=== PATIENT | female | born 1940 | race Hispanic/Latino ===

== ENCOUNTER 2016-06-23 23:00 | Inpatient (IN) | payer MEDICARE, OTHER ==
[2016-06-23 23:00] VITALS: BMI 20.9
[2016-06-23 23:50] LABS: BASO # 0.1 K/uL (0.0-0.2); EOS # 0.2 K/uL (0.0-0.7); EOS % 2.6 % (0.0-4.0); HEMATOCRIT 36.1 % (34.0-47.0); LYMPH # 1.2 K/uL (1.0-4.3); LYMPH % 13.6 % (20.0-40.0); MEAN CELL VOLUME 86.5 fl (81.0-99.0); MEAN CORPUSCULAR HGB CONC 34.7 g/dL (33.0-37.0); MEAN PLATELET VOLUME 6.9 fl (7.2-11.7); MONO # 0.6 K/uL (0.0-0.8); MONO % 6.4 % (0.0-10.0); NEUT % 76.4 % (50.0-75.0); RED CELL DISTRIBUTION WIDTH 13.3 % (11.5-14.5); WHITE BLOOD COUNT 9.2 K/uL (4.8-10.8)
[2016-06-23 23:56] LABS: ALB/GLOB RATIO 1.4 (1.0-2.1); ALKALINE PHOSPHATASE 71 U/L (38-126); ALT/SGPT 39 U/L (9-52); AST/SGOT 36 U/L (14-36); BILIRUBIN,TOTAL 0.4 mg/dl (0.2-1.3); BLOOD UREA NITROGEN 22 mg/dl (7-17); CALCIUM 9.9 mg/dL (8.4-10.2); CARBON DIOXIDE 25 mmol/L (22-30); CHLORIDE 94 mmol/L (98-107); GFR AFRICAN-AMERICAN 59; GLUCOSE,RANDOM 127 mg/dL (65-105); LIPASE 94 U/L (23-300); PHOSPHOROUS 3.1 mg/dl (2.5-4.5); POTASSIUM 3.4 MMOL/L (3.6-5.0); SODIUM 132 mmol/l (132-148); TOTAL PROTEIN 7.3 G/DL (6.3-8.2)
[2016-06-24] MEDS ORDERED: Albuterol-Ipratrop 3 mg / 0.5 (3 ml) UD INH STA (00:04)
[2016-06-24 00:06] LABS: PARTIAL THROMBOPLASTIN TIME 24.3 SECONDS (23.3-32.5)
--- NOTE | 2016-06-24 00:21 | ED PDOC ---
HPI:Nausea, Vomiting, Diarrhea Time Seen by Provider: 06/23/16 23:11 Chief Complaint (Nursing): Dizziness/Lightheaded Chief Complaint (Provider): vomiting, diarrhea History/Exam Limitations: no limitations Onset/Duration Of Symptoms: Days (7x) Current Symptoms Are (Timing): Still Present Severity: Moderate Associated Symptoms: Chills, Nausea, Vomiting, Diarrhea, Loss Of Appetite. denies: Fever, Urinary Symptoms Additional Complaint(s): 75 year old female presents to the ED with complaints of vomiting and diarrhea that started 7x days ago. She reports that the vomiting started 7x days ago, 4- 5x episodes per day and she unable to tolerate food or fluids. She reports that the diarrhea started 7x days ago, lasted for 3x days, and it was watery (non bloody). She hasn't had any bowel movements since ten. She reports having associated symptoms of chills, weakness (she almost couldn't walk today), dizziness, lightheadedness, and a headache. She denies having a fever, abdominal pain, and passing out. She reports having a similar episode to this 1x year ago. PMD: patient does not recall. 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 - Family History Family History: States: No Known Family Hx - Social History Current smoker - smoking cessation education provided: No Ex-Smoker (has not smoked in the last 12 months): Yes Alcohol: None Drugs: Denies - Immunization History Hx Tetanus Toxoid Vaccination: No Hx Influenza Vaccination: No Hx Pneumococcal Vaccination: No - Home Medications Home Medications: Ambulatory Orders Medication Instructions Recorded Alprazolam [Xanax] 0.5 mg PO DAILY 06/24/16 Calcium Carbonate [Calcium] 1,200 mg PO DAILY 06/24/16 Cholecalciferol [Vitamin D 1000 IU] 2,000 iu PO DAILY 06/24/16 Fluticasone/Salmeterol 250/50 2 puff INH PRN PRN 06/24/16 [Advair Diskus 250/50] Ipratropium [Atrovent HFA] 2 puff INH QID 06/24/16 Lisinopril/Hydrochlorothiazide 1 tab PO DAILY 06/24/16 [Lisinopril-Hctz 20-25 mg Tab] Mometasone Furoate [Nasonex] 1 spray CHAY PRN PRN 06/24/16 - Allergies Allergies/Adverse Reactions: Allergies Allergy/AdvReac Type Severity Reaction Status Date / Time No Known Allergies Allergy Verified 06/24/16 00:59 Review of Systems ROS Statement: Except As Marked, All Systems Reviewed And Found Negative Constitutional: Positive for: Chills, Weakness. Negative for: Fever Cardiovascular: Positive for: Light Headedness Respiratory: Positive for: Other (chest tightness, similar to q) Gastrointestinal: Positive for: Nausea, Vomiting, Diarrhea. Negative for: Abdominal Pain Neurological: Positive for: Headache, Dizziness Physical Exam - Reviewed Nursing Documentation Reviewed: Yes Vital Signs Reviewed: Yes - Physical Exam Appears: Positive for: Non-toxic, In Acute Distress. Negative for: Well (tired appearing) Head Exam: Positive for: ATRAUMATIC, NORMOCEPHALIC Skin: Positive for: Warm, Dry, Pallor ENT: Positive for: Pharynx Is (clear), Other (tacky mucous membranes) Neck: Positive for: Normal, Painless ROM, Trachea Midline Cardiovascular/Chest: Positive for: Regular Rate, Rhythm. Negative for: Murmur Respiratory: Positive for: Wheezing (diffuse expiratory wheeze). Negative for: Accessory Muscle Use, Respiratory Distress Gastrointestinal/Abdominal: Positive for: Normal Exam, Soft. Negative for: Tenderness, Mass, Distended, Guarding, Rebound Back: Positive for: Normal Inspection. Negative for: Decreased ROM Extremity: Positive for: Normal ROM. Negative for: Pedal Edema Lymphatic: Negative for: Adenopathy Neurologic/Psych: Positive for: Alert, Oriented (3x) - Laboratory Results Result Diagrams: 06/24/16 06:30 06/24/16 06:00 - ECG O2 Sat by Pulse Oximetry: 100 (RA) Pulse Ox Interpretation: Normal Medical Decision Making Medical Decision Makin:11 Initial impression: 75 year old female with vomiting, dirrhea, and general body weakness. Initial plan: * type and screen * head ct w/o contrast * EKG * udip * CMP * lactic acid, plasma * lipase * magnesium * phosphorous * troponin I * CBC * PTT * prothrombin time * XRay chest portable * duoneb 3mlx3 doses: 9ml INH * zofran ink 4mg IVP * blood culture * peak flow pre/post treatment * reevaluation DOMINGA Begum for hospitalization Scribe Attestation: Documented by Preethi Macias, acting as a scribe for Monalisa Velasquez MD. Provider Scribe Attestation: All medical record entries made by the Scribe were at my direction and personally dictated by me. I have reviewed the chart and agree that the record accurately reflects my personal performance of the history, physical exam, medical decision making, and the department course for this patient. I have also personally directed, reviewed, and agree with the discharge instructions and disposition. Disposition - Clinical Impression Clinical Impression: Dizziness, Gastroenteritis Counseled Patient/Family Regarding: Studies Performed, Diagnosis - Disposition Disposition Time: 00:00 Condition: GUARDED - Pt Status Changed To: Hospital Disposition Of: Observation - POA Present On Arrival: None
[2016-06-24] MEDS ORDERED: Albuterol-Ipratrop 3 mg / 0.5 (3 ml) UD ONE (00:36)
--- NOTE | 2016-06-24 00:37 | CT ---
EXAM: CT Head Without Intravenous Contrast CLINICAL HISTORY: 75 years old, female; Pain and signs and symptoms; Other: Pate's dizzyness loss of appetite HTN depression; Headache; Prior surgery; Surgery date: 6+ months; Surgery type: Shunt 2014; Additional info: Dizziness headache TECHNIQUE: Axial computed tomography images of the head/brain without intravenous contrast. This CT exam was performed using one or more of the following dose reduction techniques: automated exposure control, adjustment of the mA and/or kV according to patient size, and/or use of iterative reconstruction technique. Coronal and sagittal reformatted images were created and reviewed. COMPARISON: CT - HEAD W/O CONTRAST 01/28/2014 3:00:04 PM FINDINGS: Brain: Moderate atrophy. No intracranial hemorrhage. No mass. Few scattered foci of decreased attenuation within periventricular/subcortical white matter. No definite edema. Ventricles: Ventricular shunt via RIGHT frontal approach, tip within body of LEFT ventricle. No hydrocephalus. Bones/joints: No acute fracture. Soft tissues: Unremarkable. Vasculature: Atherosclerotic disease of intracranial arteries. Sinuses: No acute sinusitis. Mastoid air cells: No mastoid effusion. Orbits: Unremarkable as visualized. IMPRESSION: 1. Nonspecific white matter changes. Acute infarction may be CT occult within first 24 hours. If a focal deficit persists, consider followup CT or MRI for further evaluation. 2. Incidental/non-acute findings are described above.
[2016-06-24] MEDS ORDERED: Fluticasone-Salmeterol 250-50mcg Diskus INH PRN (01:45)
--- NOTE | 2016-06-24 02:22 | CP.PCM.HP ---
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 She reports that the vomiting is non-bloody/non-bilous, 4-5x episodes per day and she unable to tolerate food or fluids. She reports that the diarrhea started approx the same time and it was watery (non bloody). She reports having associated symptoms of chills, weakness, dizziness, lightheadedness, and a headache. Patient states dizziness is that she feels off-balanced. She denies having a fever, abdominal pain, and passing out. No chest pain, palpitations, recent illness, sick contacts. 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 Labs: Remarkable for elevated BUN and low Cl/K. Blood cx obtained. Imaging: CT Head w/o contrast, non-specific white matter changes. CXR NAD Meds: Zofran 4mg x1, Duoneb x 3, Present on Admission - Present on Admission Any Indicators Present on Admission: No Review of Systems - Review of Systems All systems: reviewed and no additional remarkable complaints except (mentioned in HPI) Past Patient History - Past Medical History & Family History Past Medical History?: Yes - Past Social History Alcohol: None Drugs: Denies - CARDIAC Hx Hypertension: Yes - PULMONARY Hx Asthma: Yes Hx Chronic Obstructive Pulmonary Disease (COPD): Yes - NEUROLOGICAL Hx Neurological Disorder: No - HEENT Hx HEENT Problems: Yes - RENAL Hx Chronic Kidney Disease: No - ENDOCRINE/METABOLIC Hx Endocrine Disorders: No - HEMATOLOGICAL/ONCOLOGICAL Hx Blood Disorders: No - INTEGUMENTARY Hx Dermatological Problems: No - MUSCULOSKELETAL/RHEUMATOLOGICAL Hx Arthritis: Yes Hx Osteoporosis: Yes - GASTROINTESTINAL Hx Gastrointestinal Disorders: No - GENITOURINARY/GYNECOLOGICAL Hx Genitourinary Disorders: No - PSYCHIATRIC Hx Anxiety: Yes Hx Depression: Yes - SURGICAL HISTORY Hx Surgeries: No Other/Comment: R shunt Sx for Hydrocephalus @ [facility] in June 2014 - ANESTHESIA Hx Anesthesia: Yes Hx Anesthesia Reactions: No Meds Allergies/Adverse Reactions: Allergies Allergy/AdvReac Type Severity Reaction Status Date / Time No Known Allergies Allergy Verified 06/24/16 00:59 Physical Exam - Constitutional Appears: Non-toxic, No Acute Distress - Head Exam Head Exam: ATRAUMATIC, NORMAL INSPECTION, NORMOCEPHALIC - Eye Exam Eye Exam: EOMI, Normal appearance - ENT Exam ENT Exam: Mucous Membranes Dry - Neck Exam Neck exam: Positive for: Normal Inspection - Respiratory Exam Respiratory Exam: Wheezes (mild bilateral expiratory in bases), NORMAL BREATHING PATTERN. absent: Rales, Rhonchi - Cardiovascular Exam Cardiovascular Exam: RRR, +S1, +S2 - GI/Abdominal Exam GI & Abdominal Exam: Normal Bowel Sounds, Soft. absent: Tenderness - Extremities Exam Extremities exam: Positive for: normal inspection. 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 Plan: 1) Gastroenteritis with dehydration/dizziness -Likely viral -admit to med/surg -VS qshift -patient is hemodynamically stable, vitals reviewed and stable -CT Head: no acute finding, non specific white matter changes -IVF NS @ 125ml/hr -Zofran prn n/v -f/u blood cx, labs in am, monitor vitals -Fall precautions 2)COPD -c/w home meds advair, atrovent, albuterol 3)HTN, controlled -lisinopril/HCTZ -monitor vitals 4)PPx -DVT: lovenox 40mg sc daily
[2016-06-24] MEDS: Sodium Chloride 0.9% 1,000 ML IV SCH ×2 (02:48→09:51)
[2016-06-24] MEDS ORDERED: Potassium Chloride 20 mEq ER Tab PO ONE (07:56)
[2016-06-24 08:20] LABS: HEMATOCRIT 32.7 % (34.0-47.0); MEAN CELL VOLUME 86.5 fl (81.0-99.0); MEAN CORPUSCULAR HEMOGLOBIN 30.4 pg (27.0-31.0); MEAN CORPUSCULAR HGB CONC 35.2 g/dL (33.0-37.0); RED CELL DISTRIBUTION WIDTH 13.6 % (11.5-14.5); WHITE BLOOD COUNT 7.9 K/uL (4.8-10.8)
[2016-06-24] MEDS ORDERED: Docusate-Senna 50 mg-8.6 mg Tab PO PRN (08:28)
[2016-06-24] MEDS: Fluticasone-Salmeterol 250-50mcg Diskus IH SCH ×2 (08:34→21:41)
[2016-06-24] MEDS: Enoxaparin 40 mg Syringe SC SCH (08:35)
[2016-06-24 08:46] LABS: ALB/GLOB RATIO 1.4 (1.0-2.1); BILIRUBIN,TOTAL 0.2 mg/dl (0.2-1.3); CALCIUM 9.2 mg/dL (8.4-10.2); POTASSIUM 3.2 MMOL/L (3.6-5.0); TOTAL PROTEIN 6.3 G/DL (6.3-8.2)
[2016-06-24] MEDS ORDERED: Patient's Own Med (Lisinopril/Hydrochlorothiazide [Lisinopril-Hctz 20-25 Mg Tab] 1 TAB) PO SCH (09:00)
--- NOTE | 2016-06-24 10:04 | RAD ---
HISTORY: vomiting COMPARISON: No prior. FINDINGS: LUNGS: No active pulmonary disease. PLEURA: No significant pleural effusion identified, no pneumothorax apparent. CARDIOVASCULAR: Normal. OSSEOUS STRUCTURES: No significant abnormalities. VISUALIZED UPPER ABDOMEN: Normal. OTHER FINDINGS: None. IMPRESSION: No active disease.
[2016-06-24] MEDS: IPRATROPIUM INH SCH ×4 (11:28→21:41)
--- NOTE | 2016-06-24 12:21 | CP.PCM.PN ---
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 The patient was seen this morning. There are no acute events overnight. The patient is not in acute distress. The patient denies nausea, vomiting, and diarrhea since admission; however, patient has not eaten or drank. The patient reports that she has been able to keep down water, juice, and chicken broth this morning. The patient also reports slight tension headaches on the right side whee her EDUCATION INTERN shunt is located. The patient denies chest pain, dyspnea, abdominal pain, dysuria, and fever. Objective - Vital Signs/Intake and Output Vital Signs (last 24 hours): Temp Pulse Resp BP Pulse Ox 97.7 F 72 20 122/71 97 06/24/16 07:34 06/24/16 08:36 06/24/16 07:34 06/24/16 08:36 06/24/16 07:34 - Medications Medications: Current Medications Acetaminophen (Tylenol 325mg Tab) 650 mg PO Q6 PRN PRN Reason: Headache Last Admin: 06/24/16 08:33 Dose: 650 mg Calcium Carbonate (Oscal) 1,000 mg PO DAILY [facility] Last Admin: 06/24/16 08:35 Dose: 1,000 mg Cholecalciferol (Vitamin D) 2,000 iu PO DAILY [facility] Last Admin: 06/24/16 09:51 Dose: 2,000 iu Enoxaparin Sodium (Lovenox) 40 mg SC DAILY [facility] PRN Reason: Protocol Last Admin: 06/24/16 08:35 Dose: 40 mg Home Med (Ipratropium [Atrovent Hfa]) 2 puff INH QID [facility] Last Admin: 06/24/16 11:28 Dose: Not Given Hydrochlorothiazide (Hydrodiuril) 25 mg PO DAILY [facility] Last Admin: 06/24/16 08:35 Dose: 25 mg Sodium Chloride (Sodium Chloride 0.9%) 1,000 mls @ 125 mls/hr IV .Q8H [facility] Last Admin: 06/24/16 09:51 Dose: 125 mls/hr Lisinopril (Zestril) 20 mg PO DAILY [facility] Last Admin: 06/24/16 08:36 Dose: 20 mg Ondansetron HCl (Zofran Inj) 4 mg IVP Q6 PRN PRN Reason: Nausea/Vomiting Fluticasone/Salmeterol (Advair Diskus 250/50) 1 puff IH Q12 [facility] Last Admin: 06/24/16 08:34 Dose: 1 puff Senna/Docusate Sodium (Senokot S 50 Mg-8.6 Mg) 2 tab PO HS PRN PRN Reason: Constipation - Labs Labs: PT 10.6 SECONDS (9.6-11.2) 06/23/16 23:46 INR 1.02 (0.92-1.08) 06/23/16 23:46 APTT 24.3 SECONDS (23.3-32.5) 06/23/16 23:46 - Constitutional Appears: No Acute Distress - Head Exam Head Exam: ATRAUMATIC, NORMOCEPHALIC - ENT Exam ENT Exam: Mucous Membranes Dry - Respiratory Exam Respiratory Exam: Wheezes. absent: Accessory Muscle Use, Chest Wall Tenderness , Decreased Breath Sounds, Prolonged Expiratory Phase, Rales, Rhonchi, Respiratory Distress, Stridor Additional comments: mild bilaterally expiratory wheeze at the bases - Cardiovascular Exam Cardiovascular Exam: REGULAR RHYTHM. absent: Tachycardia - GI/Abdominal Exam GI & Abdominal Exam: Soft, Normal Bowel Sounds. absent: Distended, Tenderness - Extremities Exam Extremities Exam: absent: Calf Tenderness, Pedal Edema, Tenderness - Neurological Exam Neurological Exam: Alert, Awake - Skin Skin Exam: Dry, Intact, Normal Color, Warm Assessment and Plan - Assessment and Plan (Free Text) Assessment: The patient is a 75 y/o woman w/ PMHx of COPD, HTN, EDUCATION INTERN shunt secondary to hydrocephalus presented to the ED with complaints of vomiting and diarrhea that started 1 week ago prior to admission. Plan: 1) Gastroenteritis - dehydration/dizziness - most likely viral - CBC: 7.9>11.5/32.7<255 - CMP: 135/3.2, 96/27, 22/1.2, glucose 83, Ca2+ 9.2, AST 30, ALT 35 - lactic acid 1.2 - lipase 94 - coags: PT 10.6, INR 1.02, aPTT 24.3 - CT Head: no acute finding, non specific white matter changes - given K-dur 40 meq PO once to replete K+ - IVF NS @ 125ml/hr - Zofran 4 mg IV prn for nausea - follow up blood culture 2)COPD - continue with home meds: advair, atrovent, albuterol 3)HTN - controlled - lisinopril 20 mg PO daily - HCTZ 25 mg PO daily 4)PPx - DVT: lovenox 40mg sc daily - fall precautions - PT evaluation and treatment ordered
[2016-06-25] MEDS ORDERED: Albuterol-Ipratrop 3 mg / 0.5 (3 ml) UD INH STA (07:17)
[2016-06-25 08:07] LABS: BLOOD UREA NITROGEN 13 mg/dl (7-17); CALCIUM 8.1 mg/dL (8.4-10.2); CARBON DIOXIDE 24 mmol/L (22-30); CHLORIDE 105 mmol/L (98-107); GFR AFRICAN-AMERICAN > 60; GLUCOSE,RANDOM 85 mg/dL (65-105); MAGNESIUM 1.7 MG/DL (1.6-2.3); PHOSPHOROUS 2.3 mg/dl (2.5-4.5); POTASSIUM 3.2 MMOL/L (3.6-5.0); SODIUM 135 mmol/l (132-148)
[2016-06-25] MEDS: Fluticasone-Salmeterol 250-50mcg Diskus IH SCH ×2 (08:54→20:14)
[2016-06-25] MEDS: IPRATROPIUM INH SCH ×4 (08:55→21:06)
[2016-06-25] MEDS: Enoxaparin 40 mg Syringe SC SCH (08:56)
--- NOTE | 2016-06-25 09:10 | CP.PCM.PN ---
Subjective - Date & Time of Evaluation Date of Evaluation: 06/25/16 Time of Evaluation: 07:25 - Subjective Subjective: Patient was seen and examined at bedside this morning. Patient was complaining of SOB, and chest tightness. Reports last vomit was yesterday after she ate her lunch. States that after she had her lunch she started feeling dizzy and with nausea until she throw up the whole lunch. Reports one diarrhea this morning, but can not tell if was blood in it because she did not look at the stools. Reports right sided headache, 05/04. This headaches has been intermittent for one week now. Objective - Vital Signs/Intake and Output Vital Signs (last 24 hours): Temp Pulse Resp BP Pulse Ox 97.6 F 73 18 132/65 95 06/25/16 07:41 06/25/16 08:55 06/25/16 07:41 06/25/16 08:55 06/25/16 07:41 - Medications Medications: Current Medications Acetaminophen (Tylenol 325mg Tab) 650 mg PO Q6 PRN PRN Reason: Headache Last Admin: 06/25/16 08:53 Dose: 650 mg Calcium Carbonate (Oscal) 1,000 mg PO DAILY [facility] Last Admin: 06/25/16 08:54 Dose: 1,000 mg Cholecalciferol (Vitamin D) 2,000 iu PO DAILY [facility] Last Admin: 06/24/16 09:51 Dose: 2,000 iu Enoxaparin Sodium (Lovenox) 40 mg SC DAILY [facility] PRN Reason: Protocol Last Admin: 06/25/16 08:56 Dose: 40 mg Home Med (Ipratropium [Atrovent Hfa]) 2 puff INH QID [facility] Last Admin: 06/25/16 08:55 Dose: 2 puff Hydrochlorothiazide (Hydrodiuril) 25 mg PO DAILY [facility] Last Admin: 06/25/16 08:54 Dose: 25 mg Potassium Chloride (Potassium Chloride 10 Meq/100 Ml) 100 mls @ 100 mls/hr IVPB Q1 [facility] Stop: 06/25/16 12:59 Lisinopril (Zestril) 20 mg PO DAILY [facility] Last Admin: 06/25/16 08:55 Dose: 20 mg Ondansetron HCl (Zofran Inj) 4 mg IVP Q6 PRN PRN Reason: Nausea/Vomiting Last Admin: 06/24/16 14:26 Dose: 4 mg Fluticasone/Salmeterol (Advair Diskus 250/50) 1 puff IH Q12 [facility] Last Admin: 06/25/16 08:54 Dose: 1 puff Senna/Docusate Sodium (Senokot S 50 Mg-8.6 Mg) 2 tab PO HS PRN PRN Reason: Constipation - Labs Labs: 06/25/16 06:10 PT 10.6 SECONDS (9.6-11.2) 06/23/16 23:46 INR 1.02 (0.92-1.08) 06/23/16 23:46 APTT 24.3 SECONDS (23.3-32.5) 06/23/16 23:46 - Head Exam Head Exam: ATRAUMATIC - ENT Exam ENT Exam: Mucous Membranes Moist - Neck Exam Neck Exam: Full ROM, Normal Inspection - Respiratory Exam Respiratory Exam: Decreased Breath Sounds, Wheezes (Bilateral). absent: Rales - Cardiovascular Exam Cardiovascular Exam: REGULAR RHYTHM, +S1, +S2. absent: Murmur - GI/Abdominal Exam GI & Abdominal Exam: Soft, Normal Bowel Sounds. absent: Distended, Tenderness - Extremities Exam Extremities Exam: Normal Inspection. 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 Plan: 1) Gastroenteritis - most likely viral - CBC: 7.9>11.5/32.7<255 - CMP on 06/25/16: low potassium/3.2, BUN/Cr: WNL, mild decreased Ca/Phosphorus: 8.1/2.3 - CT Head: no acute finding, non specific white matter changes - given K-dur 40 meq PO once to replete K+ -Clear liquid diet. Assess tolerance, then advance - IVF NS @ 75 ml/hr - Zofran 4 mg IV prn for nausea 2)Bacteremia, blood culture positive for Staph aureus & coagulase neg -Afebrile -F/U blood culture X 2 ordered today before Vanco -Start Vancomycin 1 GM daily IV for prophylaxis. H/o Hydrocephalus s/p SOIL SCIENCE TECHNICAL OFFICER shunt -Consider ID consult if patient spikes -Consider vanco trough 30 minutes before 4 dose 3)COPD -Patient symptomatic, with expiratory wheezing bilateral -Duoneb dose stat, re-assess -Start Duoneb [id number] -Continue with home meds: advair, atrovent, albuterol -Start prednisone 40 mg daily x 5 days -Start Protonix 20 mg IV daily for prophylaxis -CXR on 06/24/16 showed no active disease 4)Hypokalemia most likely secondary to possible gastroenteritis -K replacement 40 MEQ IV X 4 bags -F/U BMP on 06/26/16 -F/U magnesium 5)HTN - controlled - lisinopril 20 mg PO daily - HCTZ 25 mg PO daily 6)PPx - DVT: lovenox 40mg sc daily - fall precautions - PT evaluation and treatment ordered
[2016-06-25] MEDS ORDERED: Albuterol-Ipratrop 3 mg / 0.5 (3 ml) UD INH PRN (10:55)
[2016-06-25 11:22] LABS: RBC URINE 3 /hpf (0-3); URINE BACTERIA RARE (<OCC); URINE BILIRUBIN NEGATIVE (NEGATIVE); URINE BLOOD SMALL (NEGATIVE); URINE COLOR STRAW (YELLOW); URINE GLUCOSE (UA) NEG (Normal); URINE KETONE NEGATIVE (NEGATIVE); URINE LEUKOCYTE ESTERASE NEG Leu/uL (Negative); URINE PROTEIN NEGATIVE (NEGATIVE); URINE UROBILINOGEN 0.2-1.0 mg/dL (0.2-1.0); WBC URINE 1 /hpf (0-5)
[2016-06-25] MEDS: Potassium CL 10mEq/100ml 100 ML IVPB SCH ×4 (11:40→20:15)
[2016-06-25] MEDS: Albuterol-Ipratrop 3 mg / 0.5 (3 ml) UD INH SCH ×3 (11:51→19:21)
[2016-06-25] MEDS: Sodium Chloride 0.9% 1,000 ML IV SCH (13:27)
[2016-06-26] MEDS: Albuterol-Ipratrop 3 mg / 0.5 (3 ml) UD INH SCH ×7 (00:07→23:17)
[2016-06-26] MEDS: Sodium Chloride 0.9% 1,000 ML IV SCH (02:51)
--- NOTE | 2016-06-26 07:37 | CARD ---
APPROVED REPORT EKG Measurement Heart [id number] <Conclusion> Normal sinus rhythm Left bundle branch block Abnormal ECG
[2016-06-26 07:42] LABS: BLOOD UREA NITROGEN 10 mg/dl (7-17); CALCIUM 8.4 mg/dL (8.4-10.2); CARBON DIOXIDE 21 mmol/L (22-30); CHLORIDE 104 mmol/L (98-107); GFR AFRICAN-AMERICAN > 60; GLUCOSE,RANDOM 112 mg/dL (65-105); MAGNESIUM 1.6 MG/DL (1.6-2.3); POTASSIUM 3.5 MMOL/L (3.6-5.0); SODIUM 133 mmol/l (132-148)
[2016-06-26 08:23] VITALS: RESP 20
--- NOTE | 2016-06-26 08:31 | CP.PCM.PN ---
Subjective - Date & Time of Evaluation Date of Evaluation: 06/26/16 Time of Evaluation: 07:10 - Subjective Subjective: Patient was seen and examined at bedside this morning. Reports that she was feeling anxious yesterday night. Anxiety improved after she took Xanax, that she states she used to take at home three times day. Also she reports she had headache early this morning that was alleviated with oral Tylenol. Denies nausea , vomiting and/or diarrheas, she is tolerating liquid diet well, but is "afraid to eat solid food", because every time she eats solid food she gets dizzy and nauseated. She feels better than yesterday regarding the SOB and wheezing. Objective - Vital Signs/Intake and Output Vital Signs (last 24 hours): Temp Pulse Resp BP Pulse Ox 98.1 F 76 20 145/67 96 06/26/16 08:22 06/26/16 08:22 06/26/16 08:22 06/26/16 08:22 06/26/16 08:22 - Medications Medications: Current Medications Acetaminophen (Tylenol 325mg Tab) 650 mg PO Q6 PRN PRN Reason: Headache Last Admin: 06/26/16 02:50 Dose: 650 mg Albuterol/Ipratropium (Duoneb 3 Mg/0.5 Mg (3 Ml) Ud) 3 ml INH RQ4 [facility] Last Admin: 06/26/16 07:37 Dose: 3 ml Alprazolam (Xanax) 0.25 mg PO Q8 PRN PRN Reason: Anxiety Stop: 07/02/16 19:54 Last Admin: 06/25/16 20:14 Dose: 0.25 mg Calcium Carbonate (Oscal) 1,000 mg PO DAILY [facility] Last Admin: 06/25/16 08:54 Dose: 1,000 mg Cholecalciferol (Vitamin D) 2,000 iu PO DAILY [facility] Last Admin: 06/25/16 10:08 Dose: 2,000 iu Enoxaparin Sodium (Lovenox) 40 mg SC DAILY [facility] PRN Reason: Protocol Last Admin: 06/25/16 08:56 Dose: 40 mg Home Med (Ipratropium [Atrovent Hfa]) 2 puff INH QID [facility] Last Admin: 06/25/16 21:06 Dose: 2 puff Hydrochlorothiazide (Hydrodiuril) 25 mg PO DAILY [facility] Last Admin: 06/25/16 08:54 Dose: 25 mg Sodium Chloride (Sodium Chloride 0.9%) 1,000 mls @ 75 mls/hr IV .[id number] [facility] Stop: 06/26/16 12:11 Last Admin: 06/26/16 02:51 Dose: 75 mls/hr Vancomycin HCl 1 gm/ Sodium (Chloride) 250 mls @ 166.667 mls/hr IVPB DAILY [facility] Last Admin: 06/25/16 16:39 Dose: 166.667 mls/hr Lisinopril (Zestril) 20 mg PO DAILY [facility] Last Admin: 06/25/16 08:55 Dose: 20 mg Ondansetron HCl (Zofran Inj) 4 mg IVP Q6 PRN PRN Reason: Nausea/Vomiting Last Admin: 06/25/16 12:27 Dose: 4 mg Pantoprazole Sodium (Protonix Inj) 40 mg IVP DAILY [facility] Last Admin: 06/25/16 14:14 Dose: 40 mg Prednisone (Prednisone Tab) 40 mg PO DAILY [facility] Last Admin: 06/25/16 14:09 Dose: 40 mg Fluticasone/Salmeterol (Advair Diskus 250/50) 1 puff IH Q12 [facility] Last Admin: 06/25/16 20:14 Dose: 1 puff Senna/Docusate Sodium (Senokot S 50 Mg-8.6 Mg) 2 tab PO HS PRN PRN Reason: Constipation - Labs Labs: 06/26/16 06:00 PT 10.6 SECONDS (9.6-11.2) 06/23/16 23:46 INR 1.02 (0.92-1.08) 06/23/16 23:46 APTT 24.3 SECONDS (23.3-32.5) 06/23/16 23:46 - Constitutional Appears: Non-toxic, No Acute Distress - Eye Exam Eye Exam: Normal appearance - ENT Exam ENT Exam: Mucous Membranes Moist - Neck Exam Neck Exam: Full ROM - Respiratory Exam Respiratory Exam: Wheezes, NORMAL BREATHING PATTERN Additional comments: Still diffuse bilateral expiratory wheezes, but better air entrance than yesterday. No rhonchi or rales to auscultation. - Cardiovascular Exam Cardiovascular Exam: REGULAR RHYTHM, +S1, +S2 - GI/Abdominal Exam GI & Abdominal Exam: Soft, Normal Bowel Sounds. absent: Distended, Tenderness - Extremities Exam Extremities Exam: Normal Inspection. 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 Plan: Plan: 1) Gastroenteritis - most likely viral, improving - CBC: 7.9>11.5/32.7<255. F/U CBC on 06/27/16 - CMP on 06/26/16: low potassium/3.5, BUN/Cr: WNL - CT Head: no acute finding, non specific white matter changes - K-dur 40 meq PO once to replete K+ -Clear liquid diet. Assess tolerance, then advance - Zofran 4 mg IV prn for nausea 2)Bacteremia, blood culture positive for Staph aureus & coagulase neg -Continues afebrile -F/U blood culture X 2 ordered on 06/25/16 before Vanco -Continue Vancomycin 1 GM daily IV for prophylaxis. H/o Hydrocephalus s/p LIME KILN OPERATOR shunt Day #2 -Consider ID consult if patient spikes fever, and repeat blood cultures -Consider discontinue Vancomycin if blood Cx are negative -Consider vanco trough 30 minutes before 4 dose on 5 3)COPD -Patient symptomatic, with expiratory wheezing bilateral -Duoneb dose stat, re-assess -Start Duoneb [id number] -Continue with home meds: advair, atrovent, albuterol -Decreased prednisone dose from 40 mg to 20 daily to complete 5 days, start on , day #2 -Changed Protonix 40 mg IV to PO daily for prophylaxis -CXR on 06/24/16 showed no active disease 4)Hypokalemia most likely secondary to possible gastroenteritis -Improving -Given K-dur 40 meq x 4 bags yesterday IV to replete K+ -BMP on 06/26/16 showed improved K+ levels: 3.5 -Potassium 20 MEQ PO once ordered. 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
[2016-06-26] MEDS: Fluticasone-Salmeterol 250-50mcg Diskus IH SCH ×2 (08:45→21:58)
[2016-06-26] MEDS: Enoxaparin 40 mg Syringe SC SCH (08:45)
[2016-06-26] MEDS: IPRATROPIUM INH SCH ×5 (08:48→22:49)
--- NOTE | 2016-06-26 11:29 | PQF GENQUE ---
Dr. Perry, COPD Exacerbation? versus Stable? OR: Other explanation of clinical finding H and P:Respiratory Exam: Wheezes (mild bilateral expiratory in bases), NORMAL BREATHING PATTERN. absent: Rales, Rhonchi; diagnoses include: COPD -c/w home meds advair, atrovent, albuterol 06/25/16: progress note: COPD -Patient symptomatic, with expiratory wheezing bilateral -Duoneb dose stat, re-assess -Start Duoneb [id number] -Continue with home meds: advair, atrovent, albuterol -Start prednisone 40 mg daily x 5 days This form is a permanent part of the medical record Clarification of your documentation is requested to better reflect the severity of illness and intensity of treatment of your patient. Indicators present [] Specify: [] [] Specify: [] [] Specify: [] [] Specify: [] Location in the medical record that reflects the above clinical findings: [] Treatment Provided: [] PHYSICIAN'S RESPONSE Based on your medical judgment of the clinical indicators outlined above please clarify the following: [] Practitioner response [] If unable to determine, please check the box, sign and date. Present On Admission (POA) Indicator: [] Present at the time of admission [] Not present at the time of admission [] Clinically Undetermined In responding to this query, please exercise your independent professional judgment. The fact that a question is asked does not imply that any particular answer is desired or expected. Thank you for your clarification on this documentation. If you have any questions please call. * Thank you, Bhargavi Bianchi RN BSN ext. #[phone] MTDD
[2016-06-26] MEDS ORDERED: Potassium Chloride 20 mEq ER Tab PO ONE (12:21)
--- NOTE | 2016-06-26 21:01 | CON ---
DATE: 06/26/2016 This is a 75-year-old lady who was admitted for gastritis with nausea, vomiting, headache. She has a history of having a HISTORIC SITES SUPERVISOR shunt placed in [facility] a year and a half ago. The only prior sandra m is an MRI done in 2014 at [facility]. 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 Far, far more likely to be the result o f her gastroenteritis. Additionally, the CT of the brain that was done on 06/24 looks quite good with good position of the v entricular catheter and ventricles that are perhaps, anything slightly larger than normal. There is no transependymal edema and the cisterns and sulci are markedly wide, very unlikely to have shunt krysten lure. Additionally, I compared this to the MRI done in 2014 and the ventricular size is basically stable. As I discussed with Dr. Maher the ideal way to compare this is with her previous CAT scans, i.e., which she must have had in [facility] just after shunting and certainly over the past year and a half. My s uggestion would be once she is cleared from the GI standpoint to have her return to the doctor that o perated on her and is presumably following her. Ti Nieto MD cc: [phone] TT: 06/26/2016 21:00:22 Confirmation # [id number] Dictation # [id number] mn
[2016-06-27] MEDS: Albuterol-Ipratrop 3 mg / 0.5 (3 ml) UD INH SCH ×5 (03:02→15:28)
[2016-06-27 06:57] LABS: BASO % 0.4 % (0.0-2.0); EOS % 0.4 % (0.0-4.0); HEMATOCRIT 31.2 % (34.0-47.0); LYMPH # 1.7 K/uL (1.0-4.3); LYMPH % 21.9 % (20.0-40.0); MEAN CELL VOLUME 87.1 fl (81.0-99.0); MEAN CORPUSCULAR HEMOGLOBIN 30.1 pg (27.0-31.0); MEAN CORPUSCULAR HGB CONC 34.6 g/dL (33.0-37.0); MEAN PLATELET VOLUME 7.3 fl (7.2-11.7); MONO # 0.5 K/uL (0.0-0.8); MONO % 6.9 % (0.0-10.0); NEUT # 5.3 K/uL (1.8-7.0); NEUT % 70.4 % (50.0-75.0); NRBC % 0.1 % (0.0-0.0); RED CELL DISTRIBUTION WIDTH 13.6 % (11.5-14.5); WHITE BLOOD COUNT 7.6 K/uL (4.8-10.8)
[2016-06-27 07:11] LABS: CALCIUM 9.5 mg/dL (8.4-10.2); POTASSIUM 3.7 MMOL/L (3.6-5.0)
[2016-06-27 07:46] VITALS: O2SAT 94
[2016-06-27] MEDS: Fluticasone-Salmeterol 250-50mcg Diskus IH SCH (08:26)
[2016-06-27] MEDS: IPRATROPIUM INH SCH (08:27)
[2016-06-27] MEDS: Enoxaparin 40 mg Syringe SC SCH (08:28)
[2016-06-27] MEDS ORDERED: Pantoprazole 40 mg EC Tab PO SCH (09:00)
--- NOTE | 2016-06-27 10:50 | CP.PCM.DIS ---
Provider - Provider Date of Admission: 06/24/16 11:41 Attending physician: Arianna Fierro MD Time Spent in preparation of Discharge (in minutes): 30 Diagnosis - Discharge Diagnosis (1) Gastroenteritis Status: Acute Priority: High Comment: Improved admission complains. (2) COPD exacerbation Status: Chronic Priority: Medium Comment: COPD in exacerbation, but improving. Will continue monitoring while in TCU. Afebrile. (3) HTN (hypertension) Status: Chronic Priority: Medium Comment: Stable with PO medications. Will continue monitor Hospital Course - Lab Results Lab Results: Micro Results 06/25/16 14:30 Blood-Venous Blood Culture - Preliminary NO GROWTH AFTER 24 HOURS 06/25/16 14:15 Blood-Venous Blood Culture - Preliminary NO GROWTH AFTER 24 HOURS Most Recent Lab Values WBC 7.6 K/uL (4.8-10.8) 06/27/16 05:35 RBC 3.58 Mil/uL (3.80-5.20) L 06/27/16 05:35 Hgb 10.8 g/dL (12.0-16.0) L 06/27/16 05:35 Hct 31.2 % (34.0-47.0) L 06/27/16 05:35 MCV 87.1 fl (81.0-99.0) 06/27/16 05:35 MCH 30.1 pg (27.0-31.0) 06/27/16 05:35 MCHC 34.6 g/dL (33.0-37.0) 06/27/16 05:35 RDW 13.6 % (11.5-14.5) 06/27/16 05:35 Plt Count 241 K/uL (130-400) 06/27/16 05:35 MPV 7.3 fl (7.2-11.7) 06/27/16 05:35 Neut % (Auto) 70.4 % (50.0-75.0) 06/27/16 05:35 Lymph % (Auto) 21.9 % (20.0-40.0) 06/27/16 05:35 Maury % (Auto) 6.9 % (0.0-10.0) 06/27/16 05:35 Eos % (Auto) 0.4 % (0.0-4.0) 06/27/16 05:35 Baso % (Auto) 0.4 % (0.0-2.0) 06/27/16 05:35 Neut # 5.3 K/uL (1.8-7.0) 06/27/16 05:35 Lymph # 1.7 K/uL (1.0-4.3) 06/27/16 05:35 Maury # 0.5 K/uL (0.0-0.8) 06/27/16 05:35 Eos # 0.0 K/uL (0.0-0.7) 06/27/16 05:35 Baso # 0.0 K/uL (0.0-0.2) 06/27/16 05:35 PT 10.6 SECONDS (9.6-11.2) 06/23/16 23:46 INR 1.02 (0.92-1.08) 06/23/16 23:46 APTT 24.3 SECONDS (23.3-32.5) 06/23/16 23:46 Sodium 136 mmol/l (132-148) 06/27/16 05:35 Potassium 3.7 MMOL/L (3.6-5.0) 06/27/16 05:35 Chloride 105 mmol/L (98-107) 06/27/16 05:35 Carbon Dioxide 22 mmol/L (22-30) 06/27/16 05:35 Anion Gap 13 (10-20) 06/27/16 05:35 BUN 12 mg/dl (7-17) 06/27/16 05:35 Creatinine 1.1 mg/dL (0.7-1.2) 06/27/16 05:35 Est GFR ( Amer) 59 06/27/16 05:35 Est GFR (Non-Af Amer) 48 06/27/16 05:35 POC Glucose (mg/dL) 126 mg/dL (65-110) H 06/23/16 23:21 Random Glucose 89 mg/dL (65-105) 06/27/16 05:35 Lactic Acid 1.2 MMOL/L (0.7-2.1) 06/23/16 23:46 Calcium 9.5 mg/dL (8.4-10.2) 06/27/16 05:35 Phosphorus 2.3 mg/dl (2.5-4.5) L 06/25/16 06:10 Magnesium 1.6 MG/DL (1.6-2.3) 06/26/16 06:00 Total Bilirubin 0.2 mg/dl (0.2-1.3) 06/24/16 06:00 AST 30 U/L (14-36) 06/24/16 06:00 ALT 35 U/L (9-52) 06/24/16 06:00 Alkaline Phosphatase 58 U/L (38-126) 06/24/16 06:00 Troponin I < 0.0120 ng/mL (0.00-0.120) 06/23/16 23:46 Total Protein 6.3 G/DL (6.3-8.2) 06/24/16 06:00 Albumin 3.7 g/dL (3.5-5.0) 06/24/16 06:00 Globulin 2.6 gm/dL (2.2-3.9) 06/24/16 06:00 Albumin/Globulin Ratio 1.4 (1.0-2.1) 06/24/16 06:00 Lipase 94 U/L (23-300) 06/23/16 23:46 Urine Color Straw (YELLOW) 06/24/16 01:46 Urine Clarity Clear (Clear) 06/24/16 01:46 Urine pH 6.0 (5.0-8.0) 06/24/16 01:46 Ur Specific Snover 1.011 (1.003-1.030) 06/24/16 01:46 Urine Protein Negative mg/dL (NEGATIVE) 06/24/16 01:46 Urine Glucose (UA) Neg mg/dL (Normal) 06/24/16 01:46 Urine Ketones Negative mg/dL (NEGATIVE) 06/24/16 01:46 Urine Blood Small (NEGATIVE) 06/24/16 01:46 Urine Nitrate Negative (NEGATIVE) 06/24/16 01:46 Urine Bilirubin Negative (NEGATIVE) 06/24/16 01:46 Urine Urobilinogen 0.2-1.0 mg/dL (0.2-1.0) 06/24/16 01:46 Ur Leukocyte Esterase Neg Elba/uL (Negative) 06/24/16 01:46 Urine RBC (Auto) 3 /hpf (0-3) 06/24/16 01:46 Urine Microscopic WBC 1 /hpf (0-5) 06/24/16 01:46 Ur Squamous Epith Cells 1 /hpf (0-5) 06/24/16 01:46 Urine Bacteria Rare (<OCC) 06/24/16 01:46 Hyaline Casts 0-2 /hpf (0-2) 06/24/16 01:46 Blood Type O POSITIVE 06/23/16 23:30 Blood Type Confirm O POSITIVE 06/23/16 23:30 Antibody Screen Negative 06/23/16 23:30 BBK History Checked No verified bt 06/23/16 23:30 - Hospital Course Hospital Course: 75 yo F with PMHx of COPD, HTN, 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 Patient was admitted with a diagnosis of Gastroenteritis with dehydration and oral intolerance. Head CT scan done during admission showed nonspecific white matter changes. patient was managed with NPO status, and diet was advance based on patient's oral tolerance. Electrolytes imbalance was replaced as needed and resolved. Abdominal ultrasound done showed no significant or acute findings. CXR done during admission showed no active disease. During admission patient was also complaining of SOB, and physical exam showed signs possibly related with COPD exacerbation, and patient was managed with bronchodilators and 5 days course of steroids. Also Neurologist was consulted to rule out ADMINISTRATIVE AND PROGRAM SPECIALIST shunt malfunction because possible correlation with current symptoms. Dr. Nieto, neurologist, suggested f/u with her doctor that operated on her as outpatient. Patient is stable to be transfer to TCU for rehabilitation. TCU medications Will continue with same medications - Date & Time of H&P Date of H&P: 06/24/16 Time of H&P: 02:10 Discharge Exam - Head Exam Head Exam: ATRAUMATIC - Eye Exam Eye Exam: Normal appearance - ENT Exam ENT Exam: Mucous Membranes Moist - Neck Exam Neck exam: Full Rom - Respiratory Exam Respiratory Exam: Wheezes (Fine diffuse wheezes bilateral), NORMAL BREATHING PATTERN. absent: Rales, Rhonchi, Respiratory Distress - Cardiovascular Exam Cardiovascular Exam: REGULAR RHYTHM, +S1, +S2 - GI/Abdominal Exam GI & Abdominal Exam: Normal Bowel Sounds, Soft. absent: Distended, Tenderness - Extremities Exam Additional comments: Radial, DP and PT pulses present and bilateral. No edema noted. No calf pain bilateral, Marge's sign negative. - Neurological Exam Neurological exam: Alert, Oriented x3 - Skin Skin Exam: Dry, Intact, Normal Color Discharge Plan - Follow Up Plan Condition: STABLE Disposition: REHAB FACILITY/REHAB UNIT Patient education suggested?: Yes Instructions: Dehydration (DC), Hypertension (DC), Hypertension (GEN)
--- NOTE | 2016-06-27 12:31 | CP.PCM.CON ---
History of Present Illness - History of Present Illness History of Present Illness: Psychiatry consult called for evaluation of anxiety CC: "I have been anxious for years." HPI: 75 yo F w/ PMHx of COPD, HTN, GEOLOGICAL ENGINEERING TEACHER shunt 2ndary to hydrocephalus presented to the ED with complaints of vomiting and diarrhea that started 1 wk ago. Patient has a h/o anxiety, treated with Xanax for >20 years. She reports compliance with Xanax and states it is the only thing that helps her anxiety. She was not agreeable to taking an antidepressant for anxiety at this time. Manufacturing Plant Manager reviewed the risk of chronic Xanax use with the patient, including confusion, unsteady gait and respiratory depression. Patient is compliant with outpatient psychiatric treatment with Dr. Medeiros. She denies depression/ hallucinations/paranoia/delusions. ROS: She reports that the vomiting is non-bloody/non-bilous, 4-5x episodes per day and she unable to tolerate food or fluids. She reports that the diarrhea started approx the same time and it was watery (non bloody). She reports having associated symptoms of chills, weakness, dizziness, lightheadedness, and a headache. Patient states dizziness is that she feels off-balanced. She denies having a fever, abdominal pain, and passing out. No chest pain, palpitations, recent illness, sick contacts. PPHx: H/o two psychiatric admissions for depression and anxiety, last admission 2014. Denies h/o suicide attempt. 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 Labs: Remarkable for elevated BUN and low Cl/K. Blood cx obtained. Imaging: CT Head w/o contrast, non-specific white matter changes. CXR NAD MSE: A + O x 3, calm/cooperative, good eye contact, mood "anxious", affect- broad. No hallucinations/delusions. thought process- linear, coherent. Thought content- no delusions. NO SI/HI. Fair insight/judgment. Impression: 75 yo F w/ PMHx of COPD, HTN, GEOLOGICAL ENGINEERING TEACHER shunt 2ndary to hydrocephalus, h/o anxiety and depression, presents with continued anxiety, which she states is relieved by Xanax which she has been taking for over 20 years. Recommendations: -Can continue Xanax 0.5 mg PO TID PRN anxiety at this time; aligner typewriter reviewed risks/benefits with the patient and discussed that usp the patient would benefit from tapering and stopping Xanax; patient not agreeable to tx with antidepressants at this time -Continued outpatient follow-up -No inpatient psychiatric admission indicated at this time -Call w/ further questions, Dr. Orona [phone] Past Patient History - Past Medical History & Family History Past Medical History?: Yes - Past Social History Alcohol: None Drugs: Denies - CARDIAC Hx Hypertension: Yes - PULMONARY Hx Asthma: Yes Hx Chronic Obstructive Pulmonary Disease (COPD): Yes - NEUROLOGICAL Hx Neurological Disorder: No - HEENT Hx HEENT Problems: Yes Hx Cataracts: Yes - RENAL Hx Chronic Kidney Disease: No - ENDOCRINE/METABOLIC Hx Endocrine Disorders: No - HEMATOLOGICAL/ONCOLOGICAL Hx Blood Disorders: No - INTEGUMENTARY Hx Dermatological Problems: No - MUSCULOSKELETAL/RHEUMATOLOGICAL Hx Arthritis: Yes Hx Osteoporosis: Yes - GASTROINTESTINAL Hx Gastrointestinal Disorders: Yes Hx Nausea: Yes Hx Vomiting: Yes - GENITOURINARY/GYNECOLOGICAL Hx Genitourinary Disorders: No - PSYCHIATRIC Hx Anxiety: Yes Hx Depression: Yes - SURGICAL HISTORY Hx Surgeries: Yes Other/Comment: R shunt Sx for Hydrocephalus @ [facility] in June 2014 - ANESTHESIA Hx Anesthesia: Yes Hx Anesthesia Reactions: No Hx Malignant Hyperthermia: No Meds Allergies/Adverse Reactions: Allergies Allergy/AdvReac Type Severity Reaction Status Date / Time No Known Allergies Allergy Verified 06/24/16 00:59 - Medications Medications: Current Medications Acetaminophen (Tylenol 325mg Tab) 650 mg PO Q6 PRN PRN Reason: Headache Last Admin: 06/26/16 21:03 Dose: 650 mg Albuterol/Ipratropium (Duoneb 3 Mg/0.5 Mg (3 Ml) Ud) 3 ml INH RQ4 [facility] Last Admin: 06/27/16 12:17 Dose: Not Given Alprazolam (Xanax) 0.5 mg PO Q8 PRN PRN Reason: Anxiety Last Admin: 06/26/16 18:54 Dose: 0.5 mg Cholecalciferol (Vitamin D) 2,000 iu PO DAILY [facility] Last Admin: 06/27/16 08:32 Dose: 2,000 iu Enoxaparin Sodium (Lovenox) 40 mg SC DAILY [facility] PRN Reason: Protocol Last Admin: 06/27/16 08:28 Dose: 40 mg Home Med (Ipratropium [Atrovent Hfa]) 2 puff INH QID [facility] Last Admin: 06/27/16 08:27 Dose: 2 puff Hydrochlorothiazide (Hydrodiuril) 25 mg PO DAILY [facility] Last Admin: 06/27/16 08:27 Dose: 25 mg Vancomycin HCl 1 gm/ Sodium (Chloride) 250 mls @ 166.667 mls/hr IVPB DAILY [facility] Last Admin: 06/27/16 08:31 Dose: 166.667 mls/hr Lisinopril (Zestril) 20 mg PO DAILY [facility] Last Admin: 06/27/16 08:33 Dose: 20 mg Ondansetron HCl (Zofran Inj) 4 mg IVP Q6 PRN PRN Reason: Nausea/Vomiting Last Admin: 06/26/16 17:50 Dose: 4 mg Pantoprazole Sodium (Protonix Ec Tab) 40 mg PO DAILY [facility] Last Admin: 06/27/16 08:31 Dose: 40 mg Prednisone (Prednisone Tab) 20 mg PO DAILY [facility] Last Admin: 06/27/16 08:31 Dose: 20 mg Fluticasone/Salmeterol (Advair Diskus 250/50) 1 puff IH Q12 [facility] Last Admin: 06/27/16 08:26 Dose: 1 puff Senna/Docusate Sodium (Senokot S 50 Mg-8.6 Mg) 2 tab PO HS PRN PRN Reason: Constipation Results - Vital Signs Recent Vital Signs: Last Vital Signs Temp 98.4 F 06/27/16 07:45 Pulse 76 06/27/16 08:33 Resp 20 06/27/16 07:45 BP 150/73 06/27/16 08:33 Pulse Ox 94 L 06/27/16 07:45 - Labs Result Diagrams: 06/27/16 05:35 06/27/16 05:35 Labs: Laboratory Results - last 24 hr 06/27/16 06/27/16 05:35 05:35 WBC 7.6 RBC 3.58 L Hgb 10.8 L Hct 31.2 L MCV 87.1 MCH 30.1 MCHC 34.6 RDW 13.6 Plt Count 241 MPV 7.3 Neut % (Auto) 70.4 Lymph % (Auto) 21.9 Sibley % (Auto) 6.9 Eos % (Auto) 0.4 Baso % (Auto) 0.4 Neut # 5.3 Lymph # 1.7 Sibley # 0.5 Eos # 0.0 Baso # 0.0 Sodium 136 Potassium 3.7 Chloride 105 Carbon Dioxide 22 Anion Gap 13 BUN 12 Creatinine 1.1 Est GFR ( Amer) 59 Est GFR (Non-Af Amer) 48 Random Glucose 89 Calcium 9.5
--- NOTE | 2016-06-27 13:02 | US ---
HISTORY: nausea and vomiting COMPARISON: 05/08/2015. TECHNIQUE: Sonographic evaluation of the abdomen. FINDINGS: LIVER: Measures 12.1 cm. Patent portal vein. Portal venous flow: Hepatopetal. Unremarkeable echogenicity of the liver parenchyma. No mass. No intrahepatic bile duct dilatation. GALLBLADDER: Unremarkable. No gallstones. COMMON BILE DUCT: Measures 3.9 mm. No stones. No dilatation. PANCREAS: Unremarkable as visualized. No mass. No ductal dilatation. RIGHT KIDNEY: Measures 3.4 x 9.2cm. Normal echogenicity. No calculus, mass, or hydronephrosis. LEFT KIDNEY: Measures 2.7 x 8.4cm. Normal echogenicity. No calculus, mass, or hydronephrosis.Incidental finding(s): Midpole cyst 1.1 x 1.2 cm SPLEEN: Normal in size and contour. No mass. AORTA: No aneurysmal dilatation. IVC: Unremarkable. OTHER FINDINGS: None. IMPRESSION: No significant or acute findings to account for/ related to the clinical presentation.Additional benign and/or incidental findings described above.
[2016-06-27 16:55] VITALS: BP 160/73; PULSE 79; TEMP 97.7
== END 2016-06-27 17:11 | DRG 392 ==
LOC: H.ER 23:00 → H.ERHOLD 06-24 00:32 → H.MEDSURG1 06-24 02:54 → OBSVTOIN 06-24 11:41 → H.MEDSURG1 06-25 12:21
PROVIDERS: ADMIT Family Medicine; ATTEND Family Medicine
DX: A08.4 Viral intestinal infection, unspecified (principal); E86.0 Dehydration; J44.1 Chronic obstructive pulmonary disease with (acute) exacerbation; B95.61 Methicillin susceptible Staphylococcus aureus infection as the cause of diseases classified elsewhere; F41.9 Anxiety disorder, unspecified; I10 Essential (primary) hypertension; J45.909 Unspecified asthma, uncomplicated; K29.70 Gastritis, unspecified, without bleeding; M81.0 Age-related osteoporosis without current pathological fracture; Z98.2 Presence of cerebrospinal fluid drainage device; F32.9 Major depressive disorder, single episode, unspecified; E87.6 Hypokalemia; B95.7 Other staphylococcus as the cause of diseases classified elsewhere

== ENCOUNTER 2016-06-27 10:57 | Inpatient (IN) | payer MEDICARE, OTHER ==
[2016-06-27 17:13] VITALS: BMI 25.0
[2016-06-27] MEDS ORDERED: Docusate-Senna 50 mg-8.6 mg Tab PO PRN (17:34)
[2016-06-27] MEDS: Albuterol-Ipratrop 3 mg / 0.5 (3 ml) UD INH SCH ×2 (19:45→23:25)
[2016-06-27 20:26] VITALS: RESP 20
[2016-06-27] MEDS: Fluticasone-Salmeterol 250-50mcg Diskus IH SCH (21:53)
[2016-06-28] MEDS: Albuterol-Ipratrop 3 mg / 0.5 (3 ml) UD INH SCH ×6 (05:20→23:37)
[2016-06-28] MEDS: Pantoprazole 40 mg EC Tab PO SCH (08:26)
[2016-06-28] MEDS: Enoxaparin 40 mg Syringe SC SCH (08:27)
[2016-06-28] MEDS ORDERED: Patient's Own Med (Lisinopril/Hydrochlorothiazide [Lisinopril-Hctz 20-25 Mg Tab] 1 TAB) PO SCH (09:00)
[2016-06-28] MEDS: Fluticasone-Salmeterol 250-50mcg Diskus IH SCH ×3 (09:52→21:14)
[2016-06-28] MEDS: IPRATROPIUM INH SCH ×3 (09:53→13:22)
[2016-06-29] MEDS: Albuterol-Ipratrop 3 mg / 0.5 (3 ml) UD INH SCH ×5 (05:18→20:06)
[2016-06-29] MEDS: Fluticasone-Salmeterol 250-50mcg Diskus IH SCH ×3 (09:01→21:23)
[2016-06-29] MEDS: IPRATROPIUM INH SCH ×4 (09:01→21:53)
[2016-06-29] MEDS: Enoxaparin 40 mg Syringe SC SCH (09:03)
[2016-06-29] MEDS: Pantoprazole 40 mg EC Tab PO SCH (09:03)
--- NOTE | 2016-06-29 11:25 | CP.PCM.HP ---
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 Patient was admitted with a diagnosis of Gastroenteritis with dehydration and oral intolerance. Also during admission patient was complaining of worsening SOB, associated with wheezing. After evaluation she was found to be in COPD exacerbation, and has been managed with bronchodilators and 5 days course of steroids. Because blood cultures showed S.aureus and coag neg Staph we decided to repeat blood culture and start vancomycin IV with adjusted dose, but patient has been afebrile during admission. Patient was seen and examined at bedside. She reports feeling better than yesterday, denies nausea, vomiting, chills, abdominal pain, diarrheas. Patient is tolerating PO well. Present on Admission - Present on Admission Any Indicators Present on Admission: No History of DVT/PE: No History of Uncontrolled Diabetes: No Urinary Catheter: No Decubitus Ulcer Present: No Review of Systems - Review of Systems All systems: reviewed and no additional remarkable complaints except (as per HPI ) Past Patient History - Infectious Disease Hx of Infectious Diseases: None - Past Medical History & Family History Past Medical History?: Yes - Past Social History Smoking Status: Former Smoker - CARDIAC Hx Hypertension: Yes - PULMONARY Hx Asthma: Yes Hx Chronic Obstructive Pulmonary Disease (COPD): Yes - NEUROLOGICAL Hx Neurological Disorder: No - HEENT Hx HEENT Problems: Yes Hx Cataracts: Yes - RENAL Hx Chronic Kidney Disease: No - ENDOCRINE/METABOLIC Hx Endocrine Disorders: No - HEMATOLOGICAL/ONCOLOGICAL Hx Blood Disorders: No - INTEGUMENTARY Hx Dermatological Problems: No - MUSCULOSKELETAL/RHEUMATOLOGICAL Hx Falls: No - GASTROINTESTINAL Hx Gastrointestinal Disorders: Yes Hx Diarrhea: Yes Hx Nausea: Yes Hx Vomiting: Yes (at meals) Other/Comment: gastroenteritis - GENITOURINARY/GYNECOLOGICAL Hx Genitourinary Disorders: No - PSYCHIATRIC Hx Substance Use: No - SURGICAL HISTORY Hx Surgeries: Yes Other/Comment: R shunt Sx for Hydrocephalus @ [facility] in June 2014 - ANESTHESIA Hx Anesthesia: Yes Hx Anesthesia Reactions: No Hx Malignant Hyperthermia: No Meds Allergies/Adverse Reactions: Allergies Allergy/AdvReac Type Severity Reaction Status Date / Time No Known Allergies Allergy Verified 06/27/16 17:11 Physical Exam - Constitutional Appears: Non-toxic, No Acute Distress - Eye Exam Eye Exam: Normal appearance - ENT Exam ENT Exam: Mucous Membranes Moist - Respiratory Exam Respiratory Exam: Clear to Auscultation Bilateral, NORMAL BREATHING PATTERN. absent: Rales, Rhonchi, Wheezes, Respiratory Distress - Cardiovascular Exam Cardiovascular Exam: REGULAR RHYTHM, +S1, +S2 - GI/Abdominal Exam GI & Abdominal Exam: Normal Bowel Sounds, Soft. absent: Distended, Tenderness - Extremities Exam Extremities exam: Positive for: normal inspection. 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 Plan: 1)Deconditioning -Physical therapy evaluation and treatment -Occupational therapy eval and treatment 2)Gastroenteritis, resolving -most likely viral, improving, tolerating PO -BMP on 06/27/16: WNL, potassium/3.7, BUN/Cr: 12/1.1 WNL -Heart healthy diet -Zofran 4 mg IV prn for nausea 2)Bacteremia, blood culture positive for Staph aureus & coagulase neg, most likely contamination -Afebrile -Blood culture showed no growth in 3 days -Discontinued Vancomycin -Vanco trough was 18.8 3)COPD -Improving, asymptomatic -Decreased frequency of Duoneb Q 6 hours -Continue with home meds: advair, atrovent, albuterol -Prednisone 20 mg to complete 5 days, started on 06/25/16 -Protonix 40 mg PO daily -CXR on 06/24/16 showed no active disease 4)Hypokalemia most likely secondary to possible gastroenteritis -Resolved -BMP on 06/27/16: WNL, potassium/3.7 5)HTN - Asymptomatic - lisinopril 20 mg PO daily - HCTZ 25 mg PO daily 6)PPx - DVT: lovenox 40mg sc daily - fall precautions - Date & Time Date: 06/28/16 Time: 07:30
[2016-06-30] MEDS: Albuterol-Ipratrop 3 mg / 0.5 (3 ml) UD INH SCH ×3 (00:59→19:19)
[2016-06-30] MEDS: Pantoprazole 40 mg EC Tab PO SCH (08:45)
[2016-06-30] MEDS: Enoxaparin 40 mg Syringe SC SCH (08:46)
[2016-06-30] MEDS: IPRATROPIUM INH SCH ×6 (08:47→21:08)
[2016-06-30] MEDS: Fluticasone-Salmeterol 250-50mcg Diskus IH SCH ×2 (08:47→20:23)
[2016-07-01 06:48] LABS: HEMATOCRIT 32.2 % (34.0-47.0); MEAN CELL VOLUME 87.9 fl (81.0-99.0); MEAN CORPUSCULAR HEMOGLOBIN 30.1 pg (27.0-31.0); MEAN CORPUSCULAR HGB CONC 34.3 g/dL (33.0-37.0); RED CELL DISTRIBUTION WIDTH 13.7 % (11.5-14.5)
[2016-07-01 07:02] LABS: CALCIUM 9.4 mg/dL (8.4-10.2); POTASSIUM 3.6 MMOL/L (3.6-5.0)
[2016-07-01] MEDS: Albuterol-Ipratrop 3 mg / 0.5 (3 ml) UD INH SCH ×2 (07:34→19:37)
[2016-07-01] MEDS: Pantoprazole 40 mg EC Tab PO SCH (08:47)
[2016-07-01] MEDS: Fluticasone-Salmeterol 250-50mcg Diskus IH SCH ×2 (08:48→20:41)
[2016-07-01] MEDS: Enoxaparin 40 mg Syringe SC SCH (08:48)
[2016-07-01] MEDS: IPRATROPIUM INH SCH ×4 (08:48→22:00)
[2016-07-02] MEDS: Albuterol-Ipratrop 3 mg / 0.5 (3 ml) UD INH SCH ×2 (07:37→19:14)
[2016-07-02] MEDS: Fluticasone-Salmeterol 250-50mcg Diskus IH SCH ×2 (09:04→21:10)
[2016-07-02] MEDS: IPRATROPIUM INH SCH ×4 (09:23→22:00)
[2016-07-02] MEDS: Enoxaparin 40 mg Syringe SC SCH (09:24)
[2016-07-02] MEDS: Pantoprazole 40 mg EC Tab PO SCH (09:25)
[2016-07-03] MEDS: Albuterol-Ipratrop 3 mg / 0.5 (3 ml) UD INH SCH (07:29)
[2016-07-03 08:29] VITALS: BP 140/65; PULSE 79; TEMP 97.6; O2SAT 99
[2016-07-03] MEDS: Enoxaparin 40 mg Syringe SC SCH (09:05)
[2016-07-03] MEDS: Fluticasone-Salmeterol 250-50mcg Diskus IH SCH (09:05)
[2016-07-03] MEDS: IPRATROPIUM INH SCH ×3 (09:06→19:27)
[2016-07-03] MEDS: Pantoprazole 40 mg EC Tab PO SCH (09:06)
--- NOTE | 2016-07-03 16:00 | CP.PCM.DIS ---
Provider - Provider Date of Admission: 06/27/16 17:14 Attending physician: Velia Perry MD Time Spent in preparation of Discharge (in minutes): 30 Diagnosis - Discharge Diagnosis (1) Gastroenteritis Status: Acute Priority: High Comment: Most likely viral etiology. Resolved. (2) Dehydration Status: Acute Comment: Associated to Gastroenteritis. Resolved. (3) COPD exacerbation Status: Chronic Priority: High Comment: Received 5 days course of Oral prednisone. Resolved (4) Hypokalemia Status: Acute Priority: Medium Comment: Most likely secondary to gstroenteritis. Resolved after replacement. (5) HTN (hypertension) Status: Chronic Priority: Medium Comment: Controlled Hospital Course - Lab Results Lab Results: Most Recent Lab Values WBC 7.0 K/uL (4.8-10.8) 07/01/16 06:15 RBC 3.66 Mil/uL (3.80-5.20) L 07/01/16 06:15 Hgb 11.0 g/dL (12.0-16.0) L 07/01/16 06:15 Hct 32.2 % (34.0-47.0) L 07/01/16 06:15 MCV 87.9 fl (81.0-99.0) 07/01/16 06:15 MCH 30.1 pg (27.0-31.0) 07/01/16 06:15 MCHC 34.3 g/dL (33.0-37.0) 07/01/16 06:15 RDW 13.7 % (11.5-14.5) 07/01/16 06:15 Plt Count 225 K/uL (130-400) 07/01/16 06:15 Sodium 137 mmol/l (132-148) 07/01/16 06:15 Potassium 3.6 MMOL/L (3.6-5.0) 07/01/16 06:15 Chloride 101 mmol/L (98-107) 07/01/16 06:15 Carbon Dioxide 27 mmol/L (22-30) 07/01/16 06:15 Anion Gap 12 (10-20) 07/01/16 06:15 BUN 21 mg/dl (7-17) H 07/01/16 06:15 Creatinine 1.1 mg/dL (0.7-1.2) 07/01/16 06:15 Est GFR ( Amer) 59 05/07/17 06:15 Est GFR (Non-Af Amer) 48 07/01/16 06:15 Random Glucose 105 mg/dL (65-105) 07/01/16 06:15 Calcium 9.4 mg/dL (8.4-10.2) 07/01/16 06:15 Vancomycin Trough 18.8 ug/mL (5.0-10.0) H 06/28/16 06:43 - Hospital Course Hospital Course: 75 yo F w/ PMHx of COPD, HTN, REAL ESTATE VALUER shunt 2ndary to hydrocephalus who was admitted on [facility] for management of Viral Gastroenteritis associated with dehydration. Patient was managed with NPO, advance diet as tolerated; IV fluids while NPO and based on PO tolerance, antiemetic medications. Abdominal ultrasound showed no significant or acute findings. Hypokalemia found on repeat chemistry most likely due to clinical presentation of gastroenteritis was resolved after replacement based of deficiency. During admission patient was found to have an acute COPD exacerbation episode. For COPD exacerbation patient was managed with bronchodilators, 5 days course of oral Prednisone, and was placed on Protonix for prophylaxis. Chest x ray was done and showed no active disease. Symptoms/ signs of COPD exacerbation resolved during admission. Because patient was complaining of headaches, dizziness, associated with patient history of hydrocephalus s/p REAL ESTATE VALUER shunt, Head CT was done and showed no acute findings and no evidence of REAL ESTATE VALUER shunt malfunction. Neurologist was consulted and recommended f/u as outpatient with neurology. Patient was transferred stable to TCU to received physical therapy evaluation and treatment to improve weakness and deconditioning. Patient was seen and examined this morning, she feels well, denies N/V/CP/abdominal pain, headaches or other complains. Reports improved strength and gait balance. She will follow with PCP at [facility]. Home medications: Atrovent HFA 2 puffs daily Advair Diskus 250/50 1 puff Q12 Vitamin D 2000 IU PO daily HCTZ 25 mg 1 tab daily Nasonex 1 spray into each nostril PRN Alprazolam 0.5 mg PO Q8 - Date & Time of H&P Date of H&P: 06/29/16 Time of H&P: 10:55 Discharge Exam - Eye Exam Eye Exam: Normal appearance - ENT Exam ENT Exam: Mucous Membranes Moist - Respiratory Exam Respiratory Exam: Clear to PA & Lateral, NORMAL BREATHING PATTERN. absent: Rales, Rhonchi, Wheezes - Cardiovascular Exam Cardiovascular Exam: REGULAR RHYTHM, +S1, +S2 - GI/Abdominal Exam GI & Abdominal Exam: Normal Bowel Sounds, Soft. absent: Distended, Guarding, Rigid, Tenderness - Extremities Exam Extremities exam: normal inspection Additional comments: Radial and DP pulses present and bilateral. No edema noted in lower extremities. - Neurological Exam Neurological exam: Alert, Oriented x3 - Psychiatric Exam Psychiatric exam: Normal Affect, Normal Mood - Skin Skin Exam: Dry, Intact, Normal Color Discharge Plan - Discharge Medications Prescriptions: hydroCHLOROthiazide [Hydrodiuril] 25 mg PO DAILY #30 tab - Follow Up Plan Condition: GOOD Disposition: HOME/ ROUTINE Patient education suggested?: Yes Instructions: Dehydration (DC), Hypertension (DC), Hypertension (GEN) Additional Instructions: F/U with PMD on June Maintain compliance with medication regimen Heart healthy diet
== END 2016-07-03 16:10 | disposition home or self-care (01) | DRG 392 ==
LOC: H.TCU 17:14
PROVIDERS: ADMIT Family Medicine Geriatric Medicine; ATTEND Family Medicine Geriatric Medicine
PROC: F08Z4ZZ Home Management Treatment (ICD-10-PCS; principal; 2016-06-27)
PROC: F07L0FZ Range of Motion and Joint Mobility Treatment of Musculoskeletal System - Lower Back / Lower Extremity using Assistive, Adaptive, Supportive or Protective Equipment (ICD-10-PCS; 2016-06-27)
PROC: F07K0FZ Range of Motion and Joint Mobility Treatment of Musculoskeletal System - Upper Back / Upper Extremity using Assistive, Adaptive, Supportive or Protective Equipment (ICD-10-PCS; 2016-06-27)
PROC: F07Z9FZ Gait Training/Functional Ambulation Treatment using Assistive, Adaptive, Supportive or Protective Equipment (ICD-10-PCS; 2016-06-27)
PROC: F07L6FZ Therapeutic Exercise Treatment of Musculoskeletal System - Lower Back / Lower Extremity using Assistive, Adaptive, Supportive or Protective Equipment (ICD-10-PCS; 2016-06-27)
PROC: 5A0955Z Assistance with Respiratory Ventilation, Greater than 96 Consecutive Hours (ICD-10-PCS; 2016-06-27)
DX: A08.4 Viral intestinal infection, unspecified (principal); J44.9 Chronic obstructive pulmonary disease, unspecified; I10 Essential (primary) hypertension; E87.6 Hypokalemia; Z87.891 Personal history of nicotine dependence; Z98.2 Presence of cerebrospinal fluid drainage device

== ENCOUNTER 2017-12-26 16:09 | Observation (INO) | payer MEDICARE, OTHER ==
[2017-12-26 16:09] VITALS: BMI 25.0
[2017-12-26] MEDS ORDERED: Sodium Chloride 0.9% 1,000 ML IV STA (17:13)
[2017-12-26 17:40] LABS: BASO # 0.1 K/uL (0.0-0.2); BASO % 1.4 % (0.0-2.0); EOS # 0.2 K/uL (0.0-0.7); EOS % 3.2 % (0.0-4.0); HEMOGLOBIN 13.5 g/dL (12.0-16.0); LYMPH # 1.1 K/uL (1.0-4.3); LYMPH % 16.6 % (20.0-40.0); MEAN CELL VOLUME 85.1 fl (81.0-99.0); MEAN CORPUSCULAR HEMOGLOBIN 28.8 pg (27.0-31.0); MEAN CORPUSCULAR HGB CONC 33.8 g/dL (33.0-37.0); MONO # 0.5 K/uL (0.0-0.8); MONO % 8.1 % (0.0-10.0); NEUT # 4.8 K/uL (1.8-7.0); NEUT % 70.7 % (50.0-75.0); RBC 4.7 Mil/uL (3.80-5.20); RED CELL DISTRIBUTION WIDTH 12.7 % (11.5-14.5); WHITE BLOOD COUNT 6.8 K/uL (4.8-10.8)
[2017-12-26 17:43] LABS: VENOUS BLOOD GAS BASE EXCESS 6.9 mmol/L (0.0-2.0); VENOUS BLOOD GAS PCO2 46 mmHg (40-60); VENOUS BLOOD GAS PO2 33 mm/Hg (30-55); VENOUS BLOOD PH 7.45 (7.32-7.43)
--- NOTE | 2017-12-26 17:44 | RAD ---
Date of service: 12/26/2017 HISTORY: possible admission COMPARISON: Chest radiograph dated 06/24/2016. FINDINGS: LUNGS: Biapical pleural-parenchymal scarring. No active pulmonary disease. PLEURA: No significant pleural effusion identified, no pneumothorax apparent. CARDIOVASCULAR: Aortic atherosclerotic calcifications. Cardiomediastinal silhouette stably enlarged. OSSEOUS STRUCTURES: Left-sided rib fracture. Unchanged. VISUALIZED UPPER ABDOMEN: Normal. OTHER FINDINGS: Partially imaged right-sided ventriculoperitoneal shunt catheter. IMPRESSION: No active disease.
[2017-12-26 17:52] LABS: ALB/GLOB RATIO 1.3 (1.0-2.1); ALBUMIN 4.3 g/dL (3.5-5.0); CALCIUM 11.5 mg/dL (8.4-10.2)
--- NOTE | 2017-12-26 17:59 | ED PDOC ---
HPI: Abdomen Chief Complaint (Provider): GI Problem History/Exam Limitations: no limitations Onset/Duration Of Symptoms: Days (x1 week) Associated Symptoms: Vomiting Additional Complaint(s): Patient is a 77 y/o female who presents to the ED complaining of x1 week of vomiting. She reports that she immediately vomits everything she eats, including water which has left her feeling dehydrated and sick. Patient denies sick contact or recent travel. Patient's and home health aide are in the room and confirm that this is patient's baseline as far as mental status and functioning with daily activities. Patient medications include Advair, Atrovent, Lisinopril, HCTZ, Atorvastatin, and Xanax. Patient denies any neurological symptoms, nuchal rigidity, or confusion. <Preethi Meyers - Last Filed: 12/26/17 19:09> <Vince Marquis - Last Filed: 12/27/17 07:17> Time Seen by Provider: 12/26/17 17:04 Chief Complaint (Nursing): GI Problem Past Medical History Reviewed: Historical Data, Nursing Documentation, Vital Signs Vital Signs: Last Vital Signs Temp 97.7 F 12/26/17 16:22 Pulse 83 12/26/17 16:22 Resp 20 12/26/17 16:22 BP 149/71 12/26/17 16:22 Pulse Ox 94 L 12/26/17 16:22 - Medical History PMH: Anxiety, Arthritis, Asthma, COPD, Depression, HTN, Hypercholesterolemia, Osteoporosis Denies: Chronic Kidney Disease - Surgical History Other surgeries: Shunt placed for Hydrocephalus - Immunization History Hx Tetanus Toxoid Vaccination: No Hx Influenza Vaccination: No Hx Pneumococcal Vaccination: No <Preethi Meyers - Last Filed: 12/26/17 19:09> Vital Signs: Last Vital Signs Temp 98.0 F 12/27/17 06:54 Pulse 89 12/27/17 06:54 Resp 16 12/27/17 06:54 BP 175/74 H 12/27/17 06:54 Pulse Ox 94 L 12/27/17 06:54 <Vince Marquis - Last Filed: 12/27/17 07:17> - Home Medications Home Medications: Ambulatory Orders Medication Instructions Recorded Cholecalciferol [Vitamin D 1000 IU] 2,000 iu PO DAILY 06/24/16 Ipratropium [Atrovent HFA] 2 puff INH QID 06/24/16 Mometasone Furoate [Nasonex] 1 spray CHAY PRN PRN 06/24/16 Alprazolam [Xanax] 0.5 mg PO Q8 #0 06/27/16 Fluticasone/Salmeterol 250/50 1 puff IH Q12 puff 06/27/16 [Advair Diskus 250/50] hydroCHLOROthiazide [Hydrodiuril] 25 mg PO DAILY #30 tab 07/03/16 Ciprofloxacin HCl [Cipro] 500 mg PO BID #20 tab 12/27/17 Metronidazole [Flagyl] 500 mg PO TID #30 tablet 12/27/17 Ondansetron [Zofran] 4 mg PO Q8H PRN #5 tab 12/27/17 - Allergies Allergies/Adverse Reactions: Allergies Allergy/AdvReac Type Severity Reaction Status Date / Time No Known Allergies Allergy Verified 12/26/17 16:22 Review of Systems ROS Statement: Except As Marked, All Systems Reviewed And Found Negative Gastrointestinal: Positive for: Vomiting Neurological: Negative for: Weakness, Numbness, Incoordination, Change in Spee ch, Confusion, Headache, Dizziness, Other (nuchal rigidity) <Preethi Meyers - Last Filed: 12/26/17 19:09> Physical Exam - Reviewed Nursing Documentation Reviewed: Yes Vital Signs Reviewed: Yes - Physical Exam Appears: Positive for: Well, No Acute Distress Eye Exam: Positive for: Other (Myosis bilaterally 2mm on right eye 3 mm on left eye) ENT: Positive for: Other (Lips are dry) Cardiovascular/Chest: Positive for: Regular Rate, Rhythm. Negative for: Murmur Respiratory: Positive for: Normal Breath Sounds. Negative for: Respiratory Di stress Gastrointestinal/Abdominal: Positive for: Normal Exam, Soft. Negative for: Tenderness Extremity: Positive for: Normal ROM, Other (full strength and sensation in all extremities). Negative for: Pedal Edema, Deformity Lymphatic: Positive for: Normal Exam. Negative for: Other (palpable lymph nodes) Neurologic/Psych: Positive for: Alert, flake miller wheat and oats II-XII (grossly intact), Oriented. Negative for: Motor/Sensory Deficits <Preethi Meyers - Last Filed: 12/26/17 19:09> - Laboratory Results Result Diagrams: 12/26/17 17:25 12/26/17 17:25 - ECG O2 Sat by Pulse Oximetry: 94 (RA) Pulse Ox Interpretation: Abnormal <Preethi Meyers - Last Filed: 12/26/17 19:09> - Laboratory Results Result Diagrams: 12/26/17 17:25 12/26/17 17:25 <Vince Marquis Y - Last Filed: 12/27/17 07:17> Medical Decision Making Medical Decision Making: Time: 17:11 Impression: Work up for gastroenteritis and dehydration versus other abdominal pathology Initial plan: EKG CMP Lipase Prothrombin time PTT IV fluids Zofran UA Will consider imaging if there is abnormality in labs. Time: 19:06 Patient with labs are mostly normal with abnormalities for slightly elevated AST and elevated BUN. Patient attempted PO challenge but at this point patient is unable to tolerate PO. Will get CT Abd/Pelvis with constrast. Patient is to be signed out to Dr. Marquis. Scribe Attestation: Documented by Hema Cristina acting as a scribe for Preethi Meyers MD Provider Scribe Attestation: All medical record entries made by the Scribe were at my direction and personally dictated by me. I have reviewed the chart and agree that the record accurately reflects my personal performance of the history, physical exam, medical decision making, and the department course for this patient. I have also personally directed, reviewed, and agree with the discharge instructions and disposition. <Preethi Meyers - Last Filed: 12/26/17 19:09> Disposition - Disposition Disposition: Transfer of Care Disposition Time: 19:08 (Dr. Marquis pending CT Abd/Pelvis) <Preethi Meyers - Last Filed: 12/26/17 19:09> <Vince Marquis - Last Filed: 12/27/17 07:17> - Clinical Impression Clinical Impression: Vomiting - Disposition Condition: IMPROVED Additional Instructions: follow up with Dr Fernández in 1-2 days for reevaluation you need to follow up on the findings of the CT scan return to the ED with any worsening or concerning symptoms Prescriptions: Ciprofloxacin HCl [Cipro] 500 mg PO BID #20 tab Metronidazole [Flagyl] 500 mg PO TID #30 tablet Ondansetron [Zofran] 4 mg PO Q8H PRN #5 tab PRN Reason: Nausea/Vomiting Instructions: Nausea and Vomiting, Adult (DC) Forms: [employer] (Belizean)
[2017-12-26 19:32] LABS: PROTHROMBIN TIME 11.9 Seconds (9.8-13.1)
[2017-12-26 19:34] LABS: PARTIAL THROMBOPLASTIN TIME 31.5 Seconds (25.6-37.1)
--- NOTE | 2017-12-26 19:45 | ED PDOC ---
- Laboratory Results Result Diagrams: 12/26/17 17:25 12/26/17 17:25 - ECG O2 Sat by Pulse Oximetry: 94 (RA) Pulse Ox Interpretation: Abnormal Medical Decision Making Medical Decision Making: Time: 19:00 Patient care endorsed from Dr. Meyers to Dr. Marquis pending CT. [id number] Abdomen/Pelvis CT FINDINGS: LUNG BASES: 15 mm noncalcified ground glass nodular density in the RLL. Follow up with chest CT is recommended. LIVER: Unremarkable. GALLBLADDER AND BILE DUCTS: The gallbladder appears within normal limits. No radioopaque gallstones are seen. No biliary ductal dilatation is evident. PANCREAS: Diffuse pancreatic calcifications consistent with chronic pancreatitis. SPLEEN: Unremarkable. ADRENAL GLANDS: Unremarkable. KIDNEYS, URETERS, AND BLADDER: The kidneys appear within normal limits. There is no hydronephrosis or hydroureter. No urinary calculi are seen. STOMACH AND BOWEL: Small hiatal hernia is noted. Thick walled fluid filled colon is noted with involvement of all segments compatible with diffuse pancolitis. Infectious and inflammatory etiologies are considered. Consider follow up with colonoscopy. APPENDIX: No evidence of acute appendicitis on CT examination. PERITONEUM: No free fluid. No free air. LYMPH NODES: No lymphadenopathy is evident. VASCULATURE: No evidence of abdominal aortic aneurysm. BONES: No aggressive appearing osseous lesion. No acute osseous pathology evident. MISCELLANEOUS: Uterus and ovaries are atrophic. SET UP AND LAY OUT INSPECTOR shunt is in place, tip terminates in the left pelvis. IMPRESSION: 1. 15 mm noncalcified ground glass nodular density in the RLL. Follow up with chest CT is recommended. 2. Small hiatal hernia is noted. 3. Diffuse pancreatic calcifications consistent with chronic pancreatitis. 4. Pancolitis. Infectious and inflammatory etiologies are considered. Consider follow up with colonoscopy. Electronically signed on Dec 27, 2017 12:56:50 AM EDT by: Glenn Watkins M.D., TANYA Certified By [employer] [facility] Fellowship Trained MRI and CT Specialist 0200 Will test PO toleration 0303 Patient tolerated PO. she has been pain free. no vomiting or diarrhea. no abdominal pain. pt awake and alert, patent airway. She is aware of the CT results (and need for follow up as outpt with Dr Fernández, pts pcp at the clinic as per pt) and stable for discharge. Scribe Attestation: Documented by Hema Cristina acting as a scribe for Vince Marquis MD. Provider Scribe Attestation: All medical record entries made by the Scribe were at my direction and personally dictated by me. I have reviewed the chart and agree that the record accurately reflects my personal performance of the history, physical exam, medical decision making, and the department course for this patient. I have also personally directed, reviewed, and agree with the discharge instructions and disposition. Disposition - Clinical Impression Clinical Impression: Vomiting - POA Present On Arrival: None - Disposition Disposition: Routine/Home Disposition Time: 03:03 Condition: IMPROVED Additional Instructions: follow up with Dr Fernández in 1-2 days for reevaluation you need to follow up on the findings of the CT scan return to the ED with any worsening or concerning symptoms Prescriptions: Ondansetron [Zofran] 4 mg PO Q8H PRN #5 tab PRN Reason: Nausea/Vomiting Instructions: Nausea and Vomiting, Adult (DC) Forms: [employer] (German)
[2017-12-26] MEDS ORDERED: Iohexol 240 (50 ml) PO ONE (20:56)
[2017-12-26] MEDS ORDERED: Iohexol 240 (50 ml) ONE (21:23)
[2017-12-26] MEDS ORDERED: Potassium Chloride 20 mEq ER Tab PO ONE (22:51)
[2017-12-26] MEDS ORDERED: Sodium Chloride 0.9% 50 ML IV ONE (23:21)
[2017-12-26] MEDS ORDERED: Iodixanol 320 MG/ML 100 ML BOTTLE IV ONE (23:22)
[2017-12-27] MEDS ORDERED: Potassium Chloride 20 mEq ER Tab PO ONE ×2 (03:07→13:30)
--- NOTE | 2017-12-27 08:53 | ED PDOC ---
- Laboratory Results Result Diagrams: 12/26/17 17:25 12/26/17 17:25 - ECG O2 Sat by Pulse Oximetry: 98 Medical Decision Making Medical Decision Making: endorsed by Kandis that patient is discharged and pending pickup by family. Nephew showed up and raised concerns that she is not well or fit to be discharged. Labs reviewed. There is evidence of dehydration. CT scan also shows pancolitis. Will admit to med/surg for observation. Disposition - Clinical Impression Clinical Impression: Vomiting, Dehydration, Electrolyte abnormality - POA Present On Arrival: None - Disposition Disposition: Transfer of Care Disposition Time: 08:30 Condition: IMPROVED Additional Instructions: follow up with Dr Fernández in 1-2 days for reevaluation you need to follow up on the findings of the CT scan return to the ED with any worsening or concerning symptoms Prescriptions: Ciprofloxacin HCl [Cipro] 500 mg PO BID #20 tab Metronidazole [Flagyl] 500 mg PO TID #30 tablet Ondansetron [Zofran] 4 mg PO Q8H PRN #5 tab PRN Reason: Nausea/Vomiting Instructions: Nausea and Vomiting, Adult (DC) Forms: [employer] (Burkinan)
[2017-12-27] MEDS: Sucralfate 1 gm/10 ml Oral Susp UD PO SCH ×4 (09:51→21:24)
[2017-12-27 09:55] LABS: BASO # 0.1 K/uL (0.0-0.2); BASO % 1.5 % (0.0-2.0); EOS # 0.4 K/uL (0.0-0.7); EOS % 5.4 % (0.0-4.0); LYMPH # 1.6 K/uL (1.0-4.3); LYMPH % 19.8 % (20.0-40.0); MEAN CELL VOLUME 85.1 fl (81.0-99.0); MEAN CORPUSCULAR HEMOGLOBIN 29.4 pg (27.0-31.0); MEAN CORPUSCULAR HGB CONC 34.5 g/dL (33.0-37.0); MEAN PLATELET VOLUME 6.6 fl (7.2-11.7); MONO # 0.8 K/uL (0.0-0.8); MONO % 9.4 % (0.0-10.0); NEUT # 5.2 K/uL (1.8-7.0); NEUT % 63.9 % (50.0-75.0); RBC 4.44 Mil/uL (3.80-5.20); RED CELL DISTRIBUTION WIDTH 12.9 % (11.5-14.5); WHITE BLOOD COUNT 8.2 K/uL (4.8-10.8)
[2017-12-27] MEDS ORDERED: Albuterol-Ipratrop 3 mg / 0.5 (3 ml) UD ONE (10:21)
[2017-12-27 10:22] LABS: ALB/GLOB RATIO 1.3 (1.0-2.1); ALBUMIN 3.9 g/dL (3.5-5.0); ALT/SGPT 32 U/L (9-52); AST/SGOT 33 U/L (14-36); BLOOD UREA NITROGEN 22 mg/dl (7-17); CALCIUM 10.8 mg/dL (8.4-10.2); GFR NON-AFRICAN AMERICAN 54
--- NOTE | 2017-12-27 11:06 | CP.PCM.HP ---
<Desiree Fernández - Last Filed: 12/27/17 14:09> History of Present Illness - History of Present Illness History of Present Illness: 77 yo F with history of hypertension, COPD, normal pressure hydrocephalus (stent placed in June 2014), anxiety, depression, osteoporosis, hyperlipidemia, prediabetes presented to ED after 6 days of multiple episodes of vomiting. Pt states she has a cycle of sweating, feeling nauseous, and vomiting. Vomit is nonbloody, nonbilious. She has tried eating at home but could only eat small amounts and vomited soon after. After receiving IV fluids and zofran in the ED, she felt less nauseous and tried to eat, at first tolerated diet and discharge from ED was planned. However, pt reported she continued to not feel well and later vomited again. Labs in ED significant for hypokalemia, elevated BUN/Cr. CT abd showed pancolitis. PMD: [facility] PMH: hypertension, COPD, normal pressure hydrocephalus (stent placed in June 2014), anxiety, depression, hyperlipidemia, prediabetes Past Surg hx: PYROMETER TEMPERATURE REGULATOR shunt placement Meds: albuterol prn, atrovent, advair, atorvastatin, xanax, lisinopril, meclezine prn Social hx: denies tobacco, alcohol, drugs Fam hx: noncontributory Allergies: NKDA Present on Admission - Present on Admission Any Indicators Present on Admission: No Review of Systems - Review of Systems All systems: reviewed and no additional remarkable complaints except - Constitutional Constitutional: Headache - EENT Eyes: absent: Blurred Vision - Cardiovascular Cardiovascular: absent: Chest Pain - Respiratory Respiratory: absent: Cough - Gastrointestinal Gastrointestinal: Heartburn, Nausea, Vomiting - Genitourinary Genitourinary: absent: Dysuria - Neurological Neurological: absent: Numbness, Focal Weakness, Sensory Deficit Past Patient History - Infectious Disease Hx of Infectious Diseases: None - Past Medical History & Family History Past Medical History?: Yes - Past Social History Smoking Status: Former Smoker - CARDIAC Hx Hypercholesterolemia: Yes Hx Hypertension: Yes - PULMONARY Hx Asthma: Yes Hx Chronic Obstructive Pulmonary Disease (COPD): Yes - NEUROLOGICAL Hx Neurological Disorder: Yes Other/Comment: normal pressure hydrocephalus - HEENT Hx HEENT Problems: Yes Hx Cataracts: Yes - RENAL Hx Chronic Kidney Disease: No - ENDOCRINE/METABOLIC Hx Endocrine Disorders: No - HEMATOLOGICAL/ONCOLOGICAL Hx Blood Disorders: No - INTEGUMENTARY Hx Dermatological Problems: No - MUSCULOSKELETAL/RHEUMATOLOGICAL Hx Arthritis: Yes Hx Osteoporosis: Yes - GASTROINTESTINAL Hx Diarrhea: Yes Other/Comment: gastroenteritis - GENITOURINARY/GYNECOLOGICAL Hx Genitourinary Disorders: No - PSYCHIATRIC Hx Anxiety: Yes Hx Depression: Yes - SURGICAL HISTORY Hx Surgeries: Yes Other/Comment: R shunt Sx for Hydrocephalus @ [facility] in June 2014 - ANESTHESIA Hx Anesthesia: Yes Hx Anesthesia Reactions: No Hx Malignant Hyperthermia: No Meds Allergies/Adverse Reactions: Allergies Allergy/AdvReac Type Severity Reaction Status Date / Time No Known Allergies Allergy Verified 12/26/17 16:22 Physical Exam - Constitutional Appears: Non-toxic - Head Exam Head Exam: NORMAL INSPECTION - Eye Exam Eye Exam: Normal appearance - Neck Exam Neck exam: Positive for: Normal Inspection. Negative for: Lymphadenopathy - Respiratory Exam Respiratory Exam: NORMAL BREATHING PATTERN Additional comments: some scattered coarse breath sounds; unchanged from baseline known to me in the clinic; good air movement bilaterally throughout - Cardiovascular Exam Cardiovascular Exam: REGULAR RHYTHM, +S1, +S2 - GI/Abdominal Exam GI & Abdominal Exam: Normal Bowel Sounds, Soft. absent: Tenderness - Extremities Exam Extremities exam: Positive for: normal inspection. Negative for: calf tenderness, pedal edema - Back Exam Back exam: NORMAL INSPECTION - Neurological Exam Neurological exam: Alert, Oriented x3 - Psychiatric Exam Psychiatric exam: Normal Affect - Skin Skin Exam: Normal Color, Warm Results - Vital Signs Recent Vital Signs: Last Vital Signs Temp 97 F L 12/27/17 10:30 Pulse 78 12/27/17 10:30 Resp 19 12/27/17 10:30 BP 130/78 12/27/17 10:30 Pulse Ox 98 12/27/17 10:30 - Labs Result Diagrams: 12/27/17 09:15 12/27/17 09:15 Labs: Laboratory Results - last 24 hr 12/26/17 12/26/17 12/26/17 17:25 17:25 17:40 WBC 6.8 RBC 4.70 Hgb 13.5 D Hct 40.0 MCV 85.1 D MCH 28.8 MCHC 33.8 RDW 12.7 Plt Count 327 D MPV 7.0 L Neut % (Auto) 70.7 Lymph % (Auto) 16.6 L [place] % (Auto) 8.1 Eos % (Auto) 3.2 Baso % (Auto) 1.4 Neut # (Auto) 4.8 Lymph # (Auto) 1.1 [place] # (Auto) 0.5 Eos # (Auto) 0.2 Baso # (Auto) 0.1 PT INR APTT pO2 33 VBG pH 7.45 H VBG pCO2 46 VBG HCO3 29.5 VBG Total CO2 33.4 H VBG O2 Sat (Calc) 69.0 H VBG Base Excess 6.9 H VBG Potassium 3.2 L Glucose 100 Lactate 1.1 FiO2 21.0 Sodium 133 129.0 L Potassium 3.2 L Chloride 85 L 89.0 L Carbon Dioxide 28 Anion Gap 23 H BUN 29 H Creatinine 1.2 Est GFR ( Amer) 53 Est GFR (Non-Af Amer) 44 Random Glucose 96 Calcium 11.5 H Phosphorus Magnesium Total Bilirubin 0.5 AST 43 H ALT 31 Alkaline Phosphatase 80 Total Protein 7.6 Albumin 4.3 Globulin 3.3 Albumin/Globulin Ratio 1.3 Lipase 265 TSH 3rd Generation Venous Blood Potassium 3.2 L 12/26/17 12/27/17 12/27/17 19:25 09:15 09:15 WBC 8.2 RBC 4.44 Hgb 13.0 Hct 37.8 MCV 85.1 MCH 29.4 MCHC 34.5 RDW 12.9 Plt Count 312 MPV 6.6 L Neut % (Auto) 63.9 Lymph % (Auto) 19.8 L [place] % (Auto) 9.4 Eos % (Auto) 5.4 H Baso % (Auto) 1.5 Neut # (Auto) 5.2 Lymph # (Auto) 1.6 [place] # (Auto) 0.8 Eos # (Auto) 0.4 Baso # (Auto) 0.1 PT 11.9 INR 1.0 APTT 31.5 pO2 VBG pH VBG pCO2 VBG HCO3 VBG Total CO2 VBG O2 Sat (Calc) VBG Base Excess VBG Potassium Glucose Lactate FiO2 Sodium 132 Potassium 3.1 L Chloride 88 L Carbon Dioxide 28 Anion Gap 19 BUN 22 H Creatinine 1.0 Est GFR ( Amer) > 60 Est GFR (Non-Af Amer) 54 Random Glucose 109 H Calcium 10.8 H Phosphorus 3.2 Magnesium 1.3 L Total Bilirubin 0.6 AST 33 ALT 32 Alkaline Phosphatase 76 Total Protein 6.9 Albumin 3.9 Globulin 2.9 Albumin/Globulin Ratio 1.3 Lipase TSH 3rd Generation 0.93 Venous Blood Potassium Assessment & Plan - Assessment and Plan (Free Text) Assessment: 77 yo F with history of hypertension, COPD, normal pressure hydrocephalus (stent placed in June 2014), anxiety, depression, osteoposoris, hyperlipidemia, prediabetes; with acute history of 6 days of multiple episodes of vomiting, not tolerating PO diet. CT abd showed pancolitis but pt is afebrile, no leukocytosis. Admitted for observation, hydration; possibly neuro etiology, neuro consulted. Plan: Vomiting - GI vs possible neuro etiology - Not tolerating PO diet at this time - Evidence of dehydration on initial labs; resolving - Protonix, carafate, zofran - CBC, CMP, TSH - IV NS with added potassium History of Normal Pressure Hydrocephalus, currently with dizziness, vomiting - S/p stent in 2014 - CT head with and without contrast - Neuro consult - Physical Therapy - Fall precautions Pancolitis - Abd CT showed pancolitis, but she has no elevated WBC and is afebrile - Procalcitonin pending, consider antibiotics Hypokalemia - Added K to IV fluids - Follow up on CMP Hypertension - Resume home meds Anxiety - Xanax 0.5 mg Q 12 COPD - Resume home meds, advair - Duonebs PRN Prediabetes - Last known A1c from 1 yr ago 6.3 - Check HbA1c Dislipidemia - Resume home med atorvastatin Osteoporosis - Home med cholecalciferol Diet - NPO except meds for now DVT Prophylaxis - SCD for now Case discussed w/ Dr. Casillas. <Anni Casillas - Last Filed: 12/27/17 17:50> Results - Vital Signs Recent Vital Signs: Last Vital Signs Temp 98.1 F 12/27/17 16:45 Pulse 83 12/27/17 16:45 Resp 20 12/27/17 16:45 BP 136/73 12/27/17 16:45 Pulse Ox 93 L 12/27/17 16:45 - Labs Result Diagrams: 12/27/17 09:15 12/27/17 09:15 Labs: Laboratory Results - last 24 hr 12/26/17 12/26/17 12/27/17 17:25 19:25 09:15 WBC 8.2 RBC 4.44 Hgb 13.0 Hct 37.8 MCV 85.1 MCH 29.4 MCHC 34.5 RDW 12.9 Plt Count 312 MPV 6.6 L Neut % (Auto) 63.9 Lymph % (Auto) 19.8 L [place] % (Auto) 9.4 Eos % (Auto) 5.4 H Baso % (Auto) 1.5 Neut # (Auto) 5.2 Lymph # (Auto) 1.6 [place] # (Auto) 0.8 Eos # (Auto) 0.4 Baso # (Auto) 0.1 PT 11.9 INR 1.0 APTT 31.5 Sodium 133 Potassium 3.2 L Chloride 85 L Carbon Dioxide 28 Anion Gap 23 H BUN 29 H Creatinine 1.2 Est GFR ( Amer) 53 Est GFR (Non-Af Amer) 44 Random Glucose 96 Hemoglobin A1c Calcium 11.5 H Phosphorus Magnesium Total Bilirubin 0.5 AST 43 H ALT 31 Alkaline Phosphatase 80 Total Protein 7.6 Albumin 4.3 Globulin 3.3 Albumin/Globulin Ratio 1.3 Lipase 265 Procalcitonin TSH 3rd Generation 12/27/17 12/27/17 12/27/17 09:15 09:15 09:15 WBC RBC Hgb Hct MCV MCH MCHC RDW Plt Count MPV Neut % (Auto) Lymph % (Auto) [place] % (Auto) Eos % (Auto) Baso % (Auto) Neut # (Auto) Lymph # (Auto) [place] # (Auto) Eos # (Auto) Baso # (Auto) PT INR APTT Sodium 132 Potassium 3.1 L Chloride 88 L Carbon Dioxide 28 Anion Gap 19 BUN 22 H Creatinine 1.0 Est GFR ( Amer) > 60 Est GFR (Non-Af Amer) 54 Random Glucose 109 H Hemoglobin A1c 6.0 Calcium 10.8 H Phosphorus 3.2 Magnesium 1.3 L Total Bilirubin 0.6 AST 33 ALT 32 Alkaline Phosphatase 76 Total Protein 6.9 Albumin 3.9 Globulin 2.9 Albumin/Globulin Ratio 1.3 Lipase Procalcitonin < 0.05 L TSH 3rd Generation 0.93 Attending/Attestation - Attestation I have personally seen and examined this patient.: Yes I have fully participated in the care of the patient.: Yes I have reviewed all pertinent clinical information: Yes
--- NOTE | 2017-12-27 11:09 | CT ---
Date of service: 12/26/2017 PROCEDURE: CT Abdomen and Pelvis with contrast HISTORY: abd pain COMPARISON: Comparison is made with the previous study dated 05/08/2015 TECHNIQUE: Contrast dose: 75 cc of Visipaque 320. Axial and reformatted coronal and sagittal CT images of the abdomen and pelvis were obtained after IV and oral contrast administration. Radiation dose: Total exam DLP = 226.39 mGy-cm. This CT exam was performed using one or more of the following dose reduction techniques: Automated exposure control, adjustment of the mA and/or kV according to patient size, and/or use of iterative reconstruction technique. FINDINGS: LOWER THORAX: Ground-glass nodule at the right lower lobe appears slightly larger compared to the previous exam measures LIVER: Unremarkable. No gross lesion or ductal dilatation. GALLBLADDER AND BILE DUCTS: Unremarkable. PANCREAS: Unremarkable. No gross lesion or ductal dilatation. SPLEEN: Unremarkable. ADRENALS: Unremarkable. No mass. KIDNEYS AND URETERS: Unremarkable. No hydronephrosis. No solid mass. VASCULATURE: Unremarkable. No aortic aneurysm. No aortic atherosclerotic calcification or mural plaque present. BOWEL: Colonic diverticulosis are noted without definite evidence of diverticulitis. There are foci of mild large bowel wall thickening noted. Correlate clinically for possible colitis.. No obstruction. No gross mural thickening. No evidence of high grade bowel obstruction. There is a MUSIC DIRECTOR shunt catheter extending to the pelvis. APPENDIX: No evidence of appendicitis. PERITONEUM: Unremarkable. No free fluid. No free air. LYMPH NODES: Unremarkable. No enlarged lymph nodes. BLADDER: Unremarkable. REPRODUCTIVE: Unremarkable. BONES: No acute fracture. OTHER FINDINGS: None. IMPRESSION: Ground-glass nodule at the right lower lobe appears slightly larger compared to the previous study. Continuous follow-up reassessment after 6 months is recommended. Questionable large bowel wall thickening which may represent colitis. Diffuse osteopenia. Small hiatus hernia. Preliminary report with concordant findings was submitted to the referring physician.
[2017-12-27 11:10] VITALS: RESP 20
--- NOTE | 2017-12-27 11:28 | CT ---
Date of service: 12/27/2017 PROCEDURE: CT HEAD WITHOUT CONTRAST. HISTORY: headache, vomiting, hx of NPH s/p CONTROL PANEL OPERATOR shunt COMPARISON: Comparison is made with the previous study dated 06/24/2016 TECHNIQUE: Axial computed tomography images were obtained through the head/brain without intravenous contrast. Radiation dose: Total exam DLP = 882.84 mGy-cm. This CT exam was performed using one or more of the following dose reduction techniques: Automated exposure control, adjustment of the mA and/or kV according to patient size, and/or use of iterative reconstruction technique. FINDINGS: HEMORRHAGE: No intracranial hemorrhage. BRAIN: No mass effect or edema. Dilated ventricles and periventricular hypodensities are again noted. VENTRICLES: Dilated ventricles are again noted. There is CONTROL PANEL OPERATOR shunt catheter extending through the right frontal lobe with the distal tip in the left lateral ventricle. CALVARIUM: Unremarkable. PARANASAL SINUSES: Unremarkable as visualized. No significant inflammatory changes. MASTOID AIR CELLS: Unremarkable as visualized. No inflammatory changes. OTHER FINDINGS: None. IMPRESSION: No evidence of acute intracranial hemorrhage mass effect or midline shift. Dilated ventricles without significant interval change compared to the prior study. Periventricular hypodensities likely represent a combination of chronic microvascular ischemic disease and transependymal edema.
[2017-12-27] MEDS ORDERED: Dexamethasone 10 MG in Sodium Chloride 0.9% 50 ML IVPB ONE (12:14)
[2017-12-27] MEDS ORDERED: Magnesium Sulfate 2 gm/50 ml 2 GM/50 ML BAG IVPB ONE (12:30)
[2017-12-27] MEDS: Potassium Chl 20 mEq in D5-NS 1,000 ML IV SCH ×2 (13:32→20:22)
--- NOTE | 2017-12-27 14:14 | CP.PCM.CON ---
History of Present Illness - History of Present Illness History of Present Illness: Neurology Consultation Note: Mrs. Gegier is a 77-year-old woman with a past medical history of hypertension, COPD, normal pressure hydrocephalus (stent placed in June 2014), anxiety, depression, hyperlipidemia, prediabetes, who presented to the ED with complaints of nausea, vomiting and headache. Non-contrast CT scan of the head showed stable hydrocephalus and shunt. When I saw the patient, she was no longer complaining of headache, was normal/conversant and was not nauseous, but did say she has little appetite. Review of Systems - Review of Systems All systems: reviewed and no additional remarkable complaints except Past Patient History - Infectious Disease Hx of Infectious Diseases: None - Past Medical History & Family History Past Medical History?: Yes - Past Social History Smoking Status: Former Smoker - CARDIAC Hx Hypercholesterolemia: Yes Hx Hypertension: Yes - PULMONARY Hx Asthma: Yes Hx Chronic Obstructive Pulmonary Disease (COPD): Yes - NEUROLOGICAL Hx Neurological Disorder: Yes Other/Comment: normal pressure hydrocephalus - HEENT Hx HEENT Problems: Yes Hx Cataracts: Yes - RENAL Hx Chronic Kidney Disease: No - ENDOCRINE/METABOLIC Hx Endocrine Disorders: No - HEMATOLOGICAL/ONCOLOGICAL Hx Blood Disorders: No - INTEGUMENTARY Hx Dermatological Problems: No - MUSCULOSKELETAL/RHEUMATOLOGICAL Hx Arthritis: Yes Hx Osteoporosis: Yes - GASTROINTESTINAL Hx Diarrhea: Yes Other/Comment: gastroenteritis - GENITOURINARY/GYNECOLOGICAL Hx Genitourinary Disorders: No - PSYCHIATRIC Hx Anxiety: Yes Hx Depression: Yes - SURGICAL HISTORY Hx Surgeries: Yes Other/Comment: R shunt Sx for Hydrocephalus @ [facility] in June 2014 - ANESTHESIA Hx Anesthesia: Yes Hx Anesthesia Reactions: No Hx Malignant Hyperthermia: No Meds Allergies/Adverse Reactions: Allergies Allergy/AdvReac Type Severity Reaction Status Date / Time No Known Allergies Allergy Verified 12/26/17 16:22 - Medications Medications: Current Medications Albuterol/Ipratropium (Duoneb 3 Mg/0.5 Mg (3 Ml) Ud) 3 ml INH RQ4 PRN PRN Reason: Shortness of Breath Alprazolam (Xanax) 0.5 mg PO Q12 [facility] Last Admin: 12/27/17 10:22 Dose: 0.5 mg Atorvastatin Calcium (Lipitor) 20 mg PO DAILY [facility] Cholecalciferol (Vitamin D) 2,000 intlu PO DAILY [facility] Potassium Chloride/Dextrose/Sod Cl (Potassium Chl 20 Meq In D5-Ns) 1,000 mls @ 100 mls/hr IV .Q10H [facility] Stop: 12/28/17 09:33 Last Admin: 12/27/17 13:32 Dose: 100 mls/hr Lisinopril (Zestril) 20 mg PO DAILY [facility] Last Admin: 12/27/17 13:34 Dose: 20 mg Ondansetron HCl (Zofran Inj) 4 mg IVP Q6 PRN PRN Reason: Nausea/Vomiting Last Admin: 12/27/17 09:57 Dose: 4 mg Pantoprazole Sodium (Protonix Inj) 40 mg IVP DAILY [facility] Last Admin: 12/27/17 09:50 Dose: 40 mg Fluticasone/Salmeterol (Advair Diskus 250/50) 1 puff IH Q12 [facility] Sucralfate (Carafate Oral Susp) 1 gm PO QID [facility] Last Admin: 12/27/17 09:51 Dose: 1 gm Physical Exam - Constitutional Appears: Well - Head Exam Head Exam: ATRAUMATIC, NORMAL INSPECTION, NORMOCEPHALIC - Eye Exam Eye Exam: EOMI, Normal appearance, PERRL Pupil Exam: NORMAL ACCOMODATION, PERRL - ENT Exam ENT Exam: Mucous Membranes Moist, Normal Exam - Neck Exam Neck exam: Positive for: Normal Inspection - Respiratory Exam Respiratory Exam: Clear to Auscultation Bilateral, NORMAL BREATHING PATTERN - Cardiovascular Exam Cardiovascular Exam: REGULAR RHYTHM, +S1, +S2 - GI/Abdominal Exam GI & Abdominal Exam: Normal Bowel Sounds, Soft. absent: Tenderness - Rectal Exam Rectal Exam: Deferred - Neurological Exam Neurological exam: Abnormal Gait, Alert, CN II-XII Intact, Oriented x3, Reflexes Normal Additional comments: left partial Blackman's palsy. bilateral nystagmus - Psychiatric Exam Psychiatric exam: Normal Affect, Normal Mood Results - Vital Signs Recent Vital Signs: Last Vital Signs Temp 97.8 F 12/27/17 11:08 Pulse 78 12/27/17 11:08 Resp 20 12/27/17 11:08 BP 155/73 H 12/27/17 11:08 Pulse Ox 94 L 12/27/17 11:08 - Labs Result Diagrams: 12/27/17 09:15 12/27/17 09:15 Labs: Laboratory Results - last 24 hr 12/26/17 12/26/17 12/26/17 17:25 17:25 17:40 WBC 6.8 RBC 4.70 Hgb 13.5 D Hct 40.0 MCV 85.1 D MCH 28.8 MCHC 33.8 RDW 12.7 Plt Count 327 D MPV 7.0 L Neut % (Auto) 70.7 Lymph % (Auto) 16.6 L [place] % (Auto) 8.1 Eos % (Auto) 3.2 Baso % (Auto) 1.4 Neut # (Auto) 4.8 Lymph # (Auto) 1.1 [place] # (Auto) 0.5 Eos # (Auto) 0.2 Baso # (Auto) 0.1 PT INR APTT pO2 33 VBG pH 7.45 H VBG pCO2 46 VBG HCO3 29.5 VBG Total CO2 33.4 H VBG O2 Sat (Calc) 69.0 H VBG Base Excess 6.9 H VBG Potassium 3.2 L Glucose 100 Lactate 1.1 FiO2 21.0 Sodium 133 129.0 L Potassium 3.2 L Chloride 85 L 89.0 L Carbon Dioxide 28 Anion Gap 23 H BUN 29 H Creatinine 1.2 Est GFR ( Amer) 53 Est GFR (Non-Af Amer) 44 Random Glucose 96 Calcium 11.5 H Phosphorus Magnesium Total Bilirubin 0.5 AST 43 H ALT 31 Alkaline Phosphatase 80 Total Protein 7.6 Albumin 4.3 Globulin 3.3 Albumin/Globulin Ratio 1.3 Lipase 265 TSH 3rd Generation Venous Blood Potassium 3.2 L 12/26/17 12/27/17 12/27/17 19:25 09:15 09:15 WBC 8.2 RBC 4.44 Hgb 13.0 Hct 37.8 MCV 85.1 MCH 29.4 MCHC 34.5 RDW 12.9 Plt Count 312 MPV 6.6 L Neut % (Auto) 63.9 Lymph % (Auto) 19.8 L [place] % (Auto) 9.4 Eos % (Auto) 5.4 H Baso % (Auto) 1.5 Neut # (Auto) 5.2 Lymph # (Auto) 1.6 [place] # (Auto) 0.8 Eos # (Auto) 0.4 Baso # (Auto) 0.1 PT 11.9 INR 1.0 APTT 31.5 pO2 VBG pH VBG pCO2 VBG HCO3 VBG Total CO2 VBG O2 Sat (Calc) VBG Base Excess VBG Potassium Glucose Lactate FiO2 Sodium 132 Potassium 3.1 L Chloride 88 L Carbon Dioxide 28 Anion Gap 19 BUN 22 H Creatinine 1.0 Est GFR ( Amer) > 60 Est GFR (Non-Af Amer) 54 Random Glucose 109 H Calcium 10.8 H Phosphorus 3.2 Magnesium 1.3 L Total Bilirubin 0.6 AST 33 ALT 32 Alkaline Phosphatase 76 Total Protein 6.9 Albumin 3.9 Globulin 2.9 Albumin/Globulin Ratio 1.3 Lipase TSH 3rd Generation 0.93 Venous Blood Potassium Assessment & Plan (1) Vomiting Assessment and Plan: This appears to be improving with Zofran. It is unlikely to be ICP related since the shunt is stable and hydrocephalus appears the same as before. However, neurosurgical opinion is appreciated. No further recommendations. Status: Acute
--- NOTE | 2017-12-27 15:14 | CP.PCM.PN ---
Subjective - Date & Time of Evaluation Date of Evaluation: 12/27/17 Time of Evaluation: 15:12 - Subjective Subjective: no evidence of shunt failure on CT Neuologically stable Consider other causes for N/V Suggest pt schedules routine follow up with neurosurgeon who placed shunt post d/c Objective - Vital Signs/Intake and Output Vital Signs (last 24 hours): Temp Pulse Resp BP Pulse Ox 97.8 F 78 20 155/73 H 94 L 12/27/17 11:08 12/27/17 11:08 12/27/17 11:08 12/27/17 11:08 12/27/17 11:08 - Medications Medications: Current Medications Albuterol/Ipratropium (Duoneb 3 Mg/0.5 Mg (3 Ml) Ud) 3 ml INH RQ4 PRN PRN Reason: Shortness of Breath Alprazolam (Xanax) 0.5 mg PO Q12 [facility] Last Admin: 12/27/17 10:22 Dose: 0.5 mg Atorvastatin Calcium (Lipitor) 20 mg PO DAILY [facility] Cholecalciferol (Vitamin D) 2,000 intlu PO DAILY [facility] Potassium Chloride/Dextrose/Sod Cl (Potassium Chl 20 Meq In D5-Ns) 1,000 mls @ 100 mls/hr IV .Q10H [facility] Stop: 12/28/17 09:33 Last Admin: 12/27/17 13:32 Dose: 100 mls/hr Lisinopril (Zestril) 20 mg PO DAILY [facility] Last Admin: 12/27/17 13:34 Dose: 20 mg Ondansetron HCl (Zofran Inj) 4 mg IVP Q6 PRN PRN Reason: Nausea/Vomiting Last Admin: 12/27/17 09:57 Dose: 4 mg Pantoprazole Sodium (Protonix Inj) 40 mg IVP DAILY [facility] Last Admin: 12/27/17 09:50 Dose: 40 mg Fluticasone/Salmeterol (Advair Diskus 250/50) 1 puff IH Q12 [facility] Sucralfate (Carafate Oral Susp) 1 gm PO QID [facility] Last Admin: 12/27/17 09:51 Dose: 1 gm - Labs Labs: 12/27/17 09:15 12/27/17 09:15 PT 11.9 Seconds (9.8-13.1) 12/26/17 19:25 INR 1.0 12/26/17 19:25 APTT 31.5 Seconds (25.6-37.1) 12/26/17 19:25
[2017-12-27] MEDS: Albuterol-Ipratrop 3 mg / 0.5 (3 ml) UD INH PRN ×2 (16:16→20:50)
[2017-12-27] MEDS ORDERED: Fluticasone-Salmeterol 250-50mcg Diskus IH SCH (21:00)
[2017-12-28] MEDS: Potassium Chl 20 mEq in D5-NS 1,000 ML IV SCH ×2 (01:03→07:47)
[2017-12-28 07:16] LABS: MEAN CELL VOLUME 85.2 fl (81.0-99.0); MEAN CORPUSCULAR HEMOGLOBIN 29.5 pg (27.0-31.0); MEAN CORPUSCULAR HGB CONC 34.6 g/dL (33.0-37.0); RBC 3.74 Mil/uL (3.80-5.20); RED CELL DISTRIBUTION WIDTH 12.7 % (11.5-14.5); WHITE BLOOD COUNT 7.7 K/uL (4.8-10.8)
[2017-12-28 07:39] LABS: ALB/GLOB RATIO 1.3 (1.0-2.1); ALBUMIN 3.2 g/dL (3.5-5.0); ALT/SGPT 21 U/L (9-52); AST/SGOT 21 U/L (14-36); BLOOD UREA NITROGEN 20 mg/dl (7-17); CALCIUM 9.1 mg/dL (8.4-10.2); GFR NON-AFRICAN AMERICAN 48
[2017-12-28] MEDS ORDERED: Cholecalciferol 1,000 INTLU TAB PO SCH (09:00)
[2017-12-28 09:07] VITALS: BP 130/71; PULSE 76; TEMP 97.8; O2SAT 94
--- NOTE | 2017-12-28 09:43 | CP.PCM.DIS ---
Addendum entered and electronically signed by Desiree Fernández MD 12/28/17 12:22: Additional meds transmitted to pt's pharmacy: Pantoprazole 40 mg daily Carafate 1 gm TID for 5 days Original Note: <Desiree Fernández - Last Filed: 12/28/17 11:33> Provider - Provider Date of Admission: 12/27/17 08:43 Attending physician: Anni Casillas MD Primary care physician: [facility] Consults: Neurology Neurosurgery Time Spent in preparation of Discharge (in minutes): 20 Diagnosis - Discharge Diagnosis (1) Gastroenteritis Status: Resolved Priority: High (2) Dehydration Status: Resolved (3) Vomiting Status: Resolved Hospital Course - Lab Results Lab Results: Most Recent Lab Values WBC 7.7 K/uL (4.8-10.8) 12/28/17 05:30 RBC 3.74 Mil/uL (3.80-5.20) L 12/28/17 05:30 Hgb 11.0 g/dL (12.0-16.0) L D 12/28/17 05:30 Hct 31.9 % (34.0-47.0) L 12/28/17 05:30 MCV 85.2 fl (81.0-99.0) 12/28/17 05:30 MCH 29.5 pg (27.0-31.0) 12/28/17 05:30 MCHC 34.6 g/dL (33.0-37.0) 12/28/17 05:30 RDW 12.7 % (11.5-14.5) 12/28/17 05:30 Plt Count 251 K/uL (130-400) 12/28/17 05:30 MPV 6.6 fl (7.2-11.7) L 12/27/17 09:15 Neut % (Auto) 63.9 % (50.0-75.0) 12/27/17 09:15 Lymph % (Auto) 19.8 % (20.0-40.0) L 12/27/17 09:15 Garfield % (Auto) 9.4 % (0.0-10.0) 12/27/17 09:15 Eos % (Auto) 5.4 % (0.0-4.0) H 12/27/17 09:15 Baso % (Auto) 1.5 % (0.0-2.0) 12/27/17 09:15 Neut # (Auto) 5.2 K/uL (1.8-7.0) 12/27/17 09:15 Lymph # (Auto) 1.6 K/uL (1.0-4.3) 12/27/17 09:15 Garfield # (Auto) 0.8 K/uL (0.0-0.8) 12/27/17 09:15 Eos # (Auto) 0.4 K/uL (0.0-0.7) 12/27/17 09:15 Baso # (Auto) 0.1 K/uL (0.0-0.2) 12/27/17 09:15 PT 11.9 Seconds (9.8-13.1) 12/26/17 19:25 INR 1.0 12/26/17 19:25 APTT 31.5 Seconds (25.6-37.1) 12/26/17 19:25 pO2 33 mm/Hg (30-55) 12/26/17 17:40 VBG pH 7.45 (7.32-7.43) H 12/26/17 17:40 VBG pCO2 46 mmHg (40-60) 12/26/17 17:40 VBG HCO3 29.5 mmol/L 12/26/17 17:40 VBG Total CO2 33.4 mmol/L (22-28) H 12/26/17 17:40 VBG O2 Sat (Calc) 69.0 % (40-65) H 12/26/17 17:40 VBG Base Excess 6.9 mmol/L (0.0-2.0) H 12/26/17 17:40 VBG Potassium 3.2 mmol/L (3.6-5.2) L 12/26/17 17:40 Sodium 129.0 mmol/L (132-148) L 12/26/17 17:40 Chloride 89.0 mmol/L (98-107) L 12/26/17 17:40 Glucose 100 mg/dL (65-105) 12/26/17 17:40 Lactate 1.1 mmol/L (0.7-2.1) 12/26/17 17:40 FiO2 21.0 % 12/26/17 17:40 Sodium 134 mmol/l (132-148) 12/28/17 05:30 Potassium 4.0 MMOL/L (3.6-5.0) 12/28/17 05:30 Chloride 100 mmol/L (98-107) 12/28/17 05:30 Carbon Dioxide 27 mmol/L (22-30) 12/28/17 05:30 Anion Gap 11 (10-20) 12/28/17 05:30 BUN 20 mg/dl (7-17) H 12/28/17 05:30 Creatinine 1.1 mg/dl (0.7-1.2) 12/28/17 05:30 Est GFR ( Amer) 58 12/28/17 05:30 Est GFR (Non-Af Amer) 48 12/28/17 05:30 Random Glucose 242 mg/dL (65-105) H 12/28/17 05:30 Hemoglobin A1c 6.0 % (4.2-6.5) 12/27/17 09:15 Calcium 9.1 mg/dL (8.4-10.2) 12/28/17 05:30 Phosphorus 1.1 mg/dl (2.5-4.5) L 12/28/17 05:30 Magnesium 2.0 MG/DL (1.6-2.3) 12/28/17 05:30 Total Bilirubin < 0.1 mg/dl (0.2-1.3) L 12/28/17 05:30 AST 21 U/L (14-36) 12/28/17 05:30 ALT 21 U/L (9-52) 12/28/17 05:30 Alkaline Phosphatase 57 U/L (38-126) 12/28/17 05:30 Total Protein 5.7 G/DL (6.3-8.2) L 12/28/17 05:30 Albumin 3.2 g/dL (3.5-5.0) L 12/28/17 05:30 Globulin 2.5 gm/dL (2.2-3.9) 12/28/17 05:30 Albumin/Globulin Ratio 1.3 (1.0-2.1) 12/28/17 05:30 Lipase 265 U/L (23-300) 12/26/17 17:25 Procalcitonin < 0.05 NG/ML (0.19-0.49) L 12/27/17 09:15 TSH 3rd Generation 0.93 mIU/ML (0.46-4.68) 12/27/17 09:15 Venous Blood Potassium 3.2 mmol/L (3.6-5.2) L 12/26/17 17:40 - Hospital Course Hospital Course: 77 yo F with history of hypertension, COPD, normal pressure hydrocephalus (stent placed in June 2014), anxiety, depression, osteoporosis, hyperlipidemia, prediabetes was admitted to med-surg after she presented to ED with 6 days of multiple episodes of vomiting accompanied by sweating. Pt could not tolerate PO intake after treatment in ED, and was admitted for IV hydration and nausea control. Abd CT showed pancolitis, however patient did not have a leukocytosis or fever, and procalcitonin was less than 0.05. Pt was hypokalemic, this resolved with IV fluids and potassium supplementation. Neurology was consulted due to hx of normal pressure hydrocephalus; neurosurgery consulted as well - no evidence of shunt malfunctioning, and f/u with surgeon who placed shunt recommended. She tolerated dinner last night and breakfast this morning without further episodes of vomiting, and is stable and ready for discharge. Pt states she was given script in ED for zofran PRN in the ED (originally was planned discharge from ED). She will follow up at [facility] next week. Discharge Exam - Head Exam Head Exam: ATRAUMATIC - Eye Exam Eye Exam: Normal appearance - ENT Exam ENT Exam: Mucous Membranes Moist - Respiratory Exam Respiratory Exam: NORMAL BREATHING PATTERN. absent: Respiratory Distress - Cardiovascular Exam Cardiovascular Exam: REGULAR RHYTHM, +S1, +S2 - GI/Abdominal Exam GI & Abdominal Exam: Normal Bowel Sounds, Soft. absent: Tenderness - Extremities Exam Additional comments: no calf tenderness, no edema - Back Exam Back exam: NORMAL INSPECTION - Neurological Exam Neurological exam: Alert, Oriented x3 - Psychiatric Exam Psychiatric exam: Normal Mood - Skin Skin Exam: Dry, Normal Color, Warm Discharge Plan - Discharge Medications Prescriptions: Pantoprazole [Protonix EC Tab] 40 mg PO DAILY #30 ect Sucralfate [Carafate] 1 gm PO TID #15 dose - Follow Up Plan Condition: IMPROVED Disposition: HOME/ ROUTINE Instructions: Nausea and Vomiting, Adult (DC) Additional Instructions: Follow up at [facility] next week Return to ED if symptoms return or worsen Referrals: [facility] [Outside] (within 1 week) <Anni Casillas - Last Filed: 12/28/17 17:26> Provider - Provider Date of Admission: 12/27/17 08:43 Attending physician: Anni Casillas MD Hospital Course - Lab Results Lab Results: Most Recent Lab Values WBC 7.7 K/uL (4.8-10.8) 12/28/17 05:30 RBC 3.74 Mil/uL (3.80-5.20) L 12/28/17 05:30 Hgb 11.0 g/dL (12.0-16.0) L D 12/28/17 05:30 Hct 31.9 % (34.0-47.0) L 12/28/17 05:30 MCV 85.2 fl (81.0-99.0) 12/28/17 05:30 MCH 29.5 pg (27.0-31.0) 12/28/17 05:30 MCHC 34.6 g/dL (33.0-37.0) 12/28/17 05:30 RDW 12.7 % (11.5-14.5) 12/28/17 05:30 Plt Count 251 K/uL (130-400) 12/28/17 05:30 MPV 6.6 fl (7.2-11.7) L 12/27/17 09:15 Neut % (Auto) 63.9 % (50.0-75.0) 12/27/17 09:15 Lymph % (Auto) 19.8 % (20.0-40.0) L 12/27/17 09:15 Garfield % (Auto) 9.4 % (0.0-10.0) 12/27/17 09:15 Eos % (Auto) 5.4 % (0.0-4.0) H 12/27/17 09:15 Baso % (Auto) 1.5 % (0.0-2.0) 12/27/17 09:15 Neut # (Auto) 5.2 K/uL (1.8-7.0) 12/27/17 09:15 Lymph # (Auto) 1.6 K/uL (1.0-4.3) 11/02/18 09:15 Garfield # (Auto) 0.8 K/uL (0.0-0.8) 12/27/17 09:15 Eos # (Auto) 0.4 K/uL (0.0-0.7) 12/27/17 09:15 Baso # (Auto) 0.1 K/uL (0.0-0.2) 12/27/17 09:15 PT 11.9 Seconds (9.8-13.1) 12/26/17 19:25 INR 1.0 12/26/17 19:25 APTT 31.5 Seconds (25.6-37.1) 12/26/17 19:25 pO2 33 mm/Hg (30-55) 12/26/17 17:40 VBG pH 7.45 (7.32-7.43) H 12/26/17 17:40 VBG pCO2 46 mmHg (40-60) 12/26/17 17:40 VBG HCO3 29.5 mmol/L 12/26/17 17:40 VBG Total CO2 33.4 mmol/L (22-28) H 12/26/17 17:40 VBG O2 Sat (Calc) 69.0 % (40-65) H 12/26/17 17:40 VBG Base Excess 6.9 mmol/L (0.0-2.0) H 12/26/17 17:40 VBG Potassium 3.2 mmol/L (3.6-5.2) L 12/26/17 17:40 Sodium 129.0 mmol/L (132-148) L 12/26/17 17:40 Chloride 89.0 mmol/L (98-107) L 12/26/17 17:40 Glucose 100 mg/dL (65-105) 12/26/17 17:40 Lactate 1.1 mmol/L (0.7-2.1) 12/26/17 17:40 FiO2 21.0 % 12/26/17 17:40 Sodium 134 mmol/l (132-148) 12/28/17 05:30 Potassium 4.0 MMOL/L (3.6-5.0) 12/28/17 05:30 Chloride 100 mmol/L (98-107) 12/28/17 05:30 Carbon Dioxide 27 mmol/L (22-30) 12/28/17 05:30 Anion Gap 11 (10-20) 12/28/17 05:30 BUN 20 mg/dl (7-17) H 12/28/17 05:30 Creatinine 1.1 mg/dl (0.7-1.2) 12/28/17 05:30 Est GFR ( Amer) 58 12/28/17 05:30 Est GFR (Non-Af Amer) 48 12/28/17 05:30 Random Glucose 242 mg/dL (65-105) H 12/28/17 05:30 Hemoglobin A1c 6.0 % (4.2-6.5) 12/27/17 09:15 Calcium 9.1 mg/dL (8.4-10.2) 12/28/17 05:30 Phosphorus 1.1 mg/dl (2.5-4.5) L 12/28/17 05:30 Magnesium 2.0 MG/DL (1.6-2.3) 12/28/17 05:30 Total Bilirubin < 0.1 mg/dl (0.2-1.3) L 12/28/17 05:30 AST 21 U/L (14-36) 12/28/17 05:30 ALT 21 U/L (9-52) 12/28/17 05:30 Alkaline Phosphatase 57 U/L (38-126) 12/28/17 05:30 Total Protein 5.7 G/DL (6.3-8.2) L 12/28/17 05:30 Albumin 3.2 g/dL (3.5-5.0) L 12/28/17 05:30 Globulin 2.5 gm/dL (2.2-3.9) 12/28/17 05:30 Albumin/Globulin Ratio 1.3 (1.0-2.1) 12/28/17 05:30 Lipase 265 U/L (23-300) 12/26/17 17:25 Procalcitonin < 0.05 NG/ML (0.19-0.49) L 12/27/17 09:15 TSH 3rd Generation 0.93 mIU/ML (0.46-4.68) 12/27/17 09:15 Venous Blood Potassium 3.2 mmol/L (3.6-5.2) L 12/26/17 17:40 Attending/Attestation - Attestation I have personally seen and examined this patient.: Yes I have fully participated in the care of the patient.: Yes I have reviewed all pertinent clinical information, including history, physical exam and plan: Yes
[2017-12-28] MEDS: Sucralfate 1 gm/10 ml Oral Susp UD PO SCH (09:45)
== END 2017-12-28 15:53 | disposition home or self-care (01) ==
LOC: H.ER 16:09 → H.ERHOLD 12-27 08:43 → H.MEDSURG1 12-27 10:48
PROVIDERS: ADMIT Internal Medicine; ATTEND Internal Medicine
DX: K52.9 Noninfective gastroenteritis and colitis, unspecified (principal); E86.0 Dehydration; E87.6 Hypokalemia; G91.2 (Idiopathic) normal pressure hydrocephalus; Z98.2 Presence of cerebrospinal fluid drainage device; I10 Essential (primary) hypertension; J44.9 Chronic obstructive pulmonary disease, unspecified; E78.5 Hyperlipidemia, unspecified; E78.00 Pure hypercholesterolemia, unspecified; M81.0 Age-related osteoporosis without current pathological fracture; F41.9 Anxiety disorder, unspecified; M19.90 Unspecified osteoarthritis, unspecified site; Z87.891 Personal history of nicotine dependence
CPT/HCPCS: 36415; 70450; 71045; 74177; 80053; 82803; 83036; 83690; 83735; 84100; 84145; 84443; 85025; 85027; 85610; 85730; 94640; 96361; 96365; 96375; 96376; 99285; C9113; G0378; J1100; J2405; J7030; Q9966; Q9967